=== PATIENT | male | born 1965 | race Caucasian/White ===

== ENCOUNTER 2018-05-07 11:49 | Emergency (ER) | payer SELFPAY ==
--- OUTSIDE RECORDS SUMMARY | 2018-05-07 11:51 | XMS REPORT ---
:1965 [facility] Address [address] [place] [address] Dr. Carballo [address] [place] [address] Care Team Providers Name Role Phone Unavailable Unavailable Unavailable Payers Payer Name Policy Type Policy Number Effective Date Expiration Date Problems This patient has no known problems. Allergies, Adverse Reactions, Alerts Allergy Allergy Status Severity Reaction(s) Onset Inactive Treating Comments Name Type Date Date Clinician No Known DA Active U 2018-01 Allergies -27 00:00:0 0 Medications This patient has no known medications.
[2018-05-07 13:52] LABS: Absolute Lymphocytes (CBC) 1.5 K/uL (0.7-4.9); Absolute Monocytes 0.7 K/uL (0.1-1.3); Absolute Neutrophil 4.5 K/uL (1.8-8.0); Basophils % 2.4 % (0-1.3); Eosinophils % 1.9 % (0-4.4); Hematocrit 46.6 % (39.6-49.0); Lymphocytes % 21.1 % (15.3-44.8); MPV 8.4 fL (7.6-11.3); Monocytes % 10.4 % (3.3-12.3); RBC Red Blood Cell Count 4.88 M/uL (4.33-5.43)
[2018-05-07 14:03] LABS: Albumin 3.6 g/dL (3.4-5.0); Bilirubin Direct 0.3 mg/dL (0-0.2); Bilirubin Total 0.7 mg/dL (0.2-1.0); Potassium 4.3 mmol/L (3.5-5.1)
--- NOTE | 2018-05-07 14:11 | EDPHYS ---
Physician Documentation [facility] Name: Chong Ocampo Age: 53 yrs Sex: Male : 1965 Arrival Date: 05/07/2018 Time: 11:51 Bed 20 Private MD: ED Physician Ford Mondragon HPI: 05/07 19:49 This 53 yrs old Male presents to ER via Ambulatory with complaints of Rectal gs Bleeding. 19:49 The patient presents to the emergency department with bleeding from the rectum/anus, gs that is moderate. Onset: The symptoms/episode began/occurred 1 week(s) ago. Modifying factors: The symptoms are alleviated by cool compress, The symptoms are aggravated by bowel movement. Modifying factors: The symptoms are aggravated by lifting. Associate signs and symptoms: Pertinent negatives: abdominal pain, constipation, diarrhea, dysuria. The patient has experienced similar episodes in the past, several times. The patient has not recently seen a physician. Historical: - Allergies: 12:00 Codeine; sg - PMHx: 12:06 COPD; CVA; Hepatitis; High Cholesterol; Hypertension; Myocardial infarction; sg Pancreatitis; Pneumonia; - PSHx: 12:06 Carotid surgery; sg - Immunization history:: Adult Immunizations up to date. - Social history:: Smoking status: Patient/guardian denies using tobacco. - Ebola Screening: : Patient negative for fever greater than or equal to 101.5 degrees Fahrenheit, and additional compatible Ebola Virus Disease symptoms Patient denies exposure to infectious person Patient denies travel to an Ebola-affected area in the 21 days before illness onset No symptoms or risks identified at this time. ROS: 19:49 All other systems are negative. gs Exam: 19:49 Head/Face: Normocephalic, atraumatic. Eyes: Pupils equal round and reactive to light, gs extra-ocular motions intact. Lids and lashes normal. Conjunctiva and sclera are non-icteric and not injected. Cornea within normal limits. Periorbital areas with no swelling, redness, or edema. ENT: Nares patent. No nasal discharge, no septal abnormalities noted. Tympanic membranes are normal and external auditory canals are clear. Oropharynx with no redness, swelling, or masses, exudates, or evidence of obstruction, uvula midline. Mucous membranes moist. Neck: Trachea midline, no thyromegaly or masses palpated, and no cervical lymphadenopathy. Supple, full range of motion without nuchal rigidity, or vertebral point tenderness. No Meningismus. Chest/axilla: Normal chest wall appearance and motion. Nontender with no deformity. No lesions are appreciated. Cardiovascular: Regular rate and rhythm with a normal S1 and S2. No gallops, murmurs, or rubs. Normal PMI, no JVD. No pulse deficits. Respiratory: Lungs have equal breath sounds bilaterally, clear to auscultation and percussion. No rales, rhonchi or wheezes noted. No increased work of breathing, no retractions or nasal flaring. Back: No spinal tenderness. No costovertebral tenderness. Full range of motion. Male : Normal genitalia with no discharge or lesions. Skin: Warm, dry with normal turgor. Normal color with no rashes, no lesions, and no evidence of cellulitis. MS/ Extremity: Pulses equal, no cyanosis. Neurovascular intact. Full, normal range of motion. Neuro: Awake and alert, GCS 15, oriented to person, place, time, and situation. Cranial nerves II-XII grossly intact. Motor strength 5/5 in all extremities. Sensory grossly intact. Cerebellar exam normal. Normal gait. 19:49 Constitutional: The patient appears alert, awake. 19:49 Abdomen/GI: Inspection: abdomen appears normal, Bowel sounds: normal, Palpation: abdomen is soft and non-tender, in all quadrants, Rectal exam: Stool: normal, guaiac negative. Vital Signs: 12:04 BP 128 / 78; Pulse 84; Resp 17; Temp 97.7; Pulse Ox 98% on R/A; Weight 83.91 kg; Height sg 5 ft. 10 in. (177.80 cm); Pain 8/10; 13:30 BP 136 / 78; Pulse 79; Resp 16; Pulse Ox 98% ; jl7 14:46 BP 134 / 75; Pulse 80; Resp 16 S; Pulse Ox 99% on R/A; jl7 12:04 Body Mass Index 26.54 (83.91 kg, 177.80 cm) MDM: 13:08 Patient medically screened. gs 19:49 Differential diagnosis: hemorrhoids, fissure. Data reviewed: vital signs, nurses notes. 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 Response to treatment: the patient's symptoms have resolved after treatment, and as a result, I will discharge patient. 05/07 13:09 Order name: Basic Metabolic Panel; Complete Time: 14:09 gs 05/07 13:09 Order name: CBC with Diff; Complete Time: 14:09 gs 05/07 13:09 Order name: Hepatic Function; Complete Time: 14:09 gs 05/07 13:09 Order name: Lipase; Complete Time: 14:09 gs 05/07 13:09 Order name: IV Saline Lock; Complete Time: 13:45 gs 05/07 13:09 Order name: Labs collected and sent; Complete Time: 13:45 gs Administered Medications: No medications were administered Disposition: 05/07/18 14:10 Discharged to Home. Impression: Gastrointestinal hemorrhage, unspecified. - Condition is Stable. - Discharge Instructions: Rectal Bleeding. - Medication Reconciliation Form, Thank You Letter, Antibiotic Education, Prescription Opioid Use form. - Follow up: Mitesh Dumas MD; When: 2 - 3 days; Reason: Re-evaluation by your physician. Signatures: Dispatcher [employer] EDMS Dejan Ceron RN RN sg Kim Diallo RN RN jl7 Ford Mondragon MD MD Corrections: (The following items were deleted from the chart) 14:47 14:10 05/07/2018 14:10 Discharged to Home. Impression: Gastrointestinal hemorrhage, jl7 unspecified. Condition is Stable. Forms are Medication Reconciliation Form, Thank You Letter, Antibiotic Education, Prescription Opioid Use. Follow up: Mitesh Dumas; When: 2 - 3 days; Reason: Re-evaluation by your physician. gs
--- NOTE | 2018-05-07 14:11 | ER ---
Nurse's Notes [facility] Name: Chong Ocampo Age: 53 yrs Sex: Male : 1965 Arrival Date: 05/07/2018 Time: 11:51 Bed 20 Private MD: Diagnosis: Gastrointestinal hemorrhage, unspecified Presentation: 05/07 12:03 Presenting complaint: Patient states: pt reports rectal bleeding since 04/16/18, sg reports having had this happen before but was not able to do a follow up with GI, rerports having happened several years ago, bright red blood with clots per pt family. Transition of care: patient was not received from another setting of care. Onset of symptoms was May 07, 2018. Risk Assessment: Do you want to hurt yourself or someone else? Patient reports no desire to harm self or others. Initial Sepsis Screen: Does the patient meet any 2 criteria? No. Patient's initial sepsis screen is negative. Does the patient have a suspected source of infection? No. Patient's initial sepsis screen is negative. Care prior to arrival: None. 12:03 Method Of Arrival: Ambulatory sg 12:03 Acuity: FILI 3 sg Historical: - Allergies: 12:00 Codeine; sg - PMHx: 12:06 COPD; CVA; Hepatitis; High Cholesterol; Hypertension; Myocardial infarction; sg Pancreatitis; Pneumonia; - PSHx: 12:06 Carotid surgery; sg - Immunization history:: Adult Immunizations up to date. - Social history:: Smoking status: Patient/guardian denies using tobacco. - Ebola Screening: : Patient negative for fever greater than or equal to 101.5 degrees Fahrenheit, and additional compatible Ebola Virus Disease symptoms Patient denies exposure to infectious person Patient denies travel to an Ebola-affected area in the 21 days before illness onset No symptoms or risks identified at this time. Screenin:30 Abuse screen: Denies threats or abuse. Denies injuries from another. Nutritional jl7 screening: No deficits noted. Tuberculosis screening: No symptoms or risk factors identified. Fall Risk IV access (20 points). Total Tony Fall Scale indicates No Risk (0-24 pts). Assessment: 13:20 General: Appears in no apparent distress. uncomfortable, Behavior is calm, cooperative, jl7 appropriate for age. Pain: Complains of pain in umbilical area and left lower quadrant Pain currently is 8 out of 10 on a pain scale. Neuro: Level of Consciousness is awake, alert, obeys commands, Oriented to person, place, time, situation. Cardiovascular: Patient's skin is warm and dry. Respiratory: Airway is patent Respiratory effort is even, unlabored, Respiratory pattern is regular, symmetrical. GI: Abdomen is round non-distended, Bowel sounds present X 4 quads. Reports rectal bleeding. : No signs and/or symptoms were reported regarding the genitourinary system. EENT: No signs and/or symptoms were reported regarding the EENT system. Derm: Skin is pink, warm \T\ dry. 14:20 Reassessment: Patient appears in no apparent distress at this time. No changes from jl7 previously documented assessment. Patient and/or family updated on plan of care and expected duration. Pain level reassessed. Patient is alert, oriented x 3, equal unlabored respirations, skin warm/dry/pink. Vital Signs: 12:04 BP 128 / 78; Pulse 84; Resp 17; Temp 97.7; Pulse Ox 98% on R/A; Weight 83.91 kg; Height sg 5 ft. 10 in. (177.80 cm); Pain 8/10; 13:30 BP 136 / 78; Pulse 79; Resp 16; Pulse Ox 98% ; jl7 14:46 BP 134 / 75; Pulse 80; Resp 16 S; Pulse Ox 99% on R/A; jl7 12:04 Body Mass Index 26.54 (83.91 kg, 177.80 cm) ED Course: 11:51 Patient arrived in ED. mr 11:54 Arm band placed on. sg 12:04 Triage completed. sg 12:41 Ford Mondragon MD is Attending Physician. gs 13:12 Kim Diallo RN is Primary Nurse. jl7 13:30 Patient has correct armband on for positive identification. Placed in gown. Bed in low jl7 position. Call light in reach. Side rails up X 1. satellite project site monitor on. Pulse ox on. NIBP on. Warm blanket given. 13:30 Initial lab(s) drawn, by me, sent to lab. Inserted saline lock: 20 gauge in right jl7 antecubital area, using aseptic technique. Blood collected. 14:09 Mitesh Dumas MD is Referral Physician. 14:46 No provider procedures requiring assistance completed. IV discontinued, intact, jl7 bleeding controlled, No redness/swelling at site. Pressure dressing applied. Administered Medications: No medications were administered Outcome: 14:10 Discharge ordered by . 14:46 Discharged to home ambulatory. jl7 14:46 Condition: stable 14:46 Discharge instructions given to patient, family, Instructed on discharge instructions, follow up and referral plans. Demonstrated understanding of instructions, follow-up care. 14:47 Patient left the ED. jl7 Signatures: Dejan Ceron, VARUN BOND Cassi Anaya Jahala, RN RN jl7 Ford Mondragon MD MD
[2018-05-07 14:52] VITALS: TEMP 97.7
[2018-05-07 14:55] VITALS: BP 134/75; O2SAT 99
== END 2018-05-07 14:47 | disposition home or self-care (01) ==
LOC: ER 11:49
DX: K92.2 Gastrointestinal hemorrhage, unspecified (principal)
CPT/HCPCS: 36415; 80048; 80076; 83690; 85025; 99284

== ENCOUNTER 2019-07-08 10:00 | Emergency (ER) | payer SELFPAY ==
--- OUTSIDE RECORDS SUMMARY | 2019-07-08 10:05 | XMS REPORT ---
:1965 Author Organization [facility] Address [address] [place] [address] Dr. Carballo [address] [place] [address] Care Team Providers Name Role Phone Unavailable Unavailable Unavailable Payers Payer Name Policy Type Policy Number Effective Date Expiration Date Problems This patient has no known problems. Allergies, Adverse Reactions, Alerts Allergy Allergy Status Severity Reaction(s) Onset Inactive Treating Comments Name Type Date Date Clinician No Known DA Active U 2018-01 Allergies -27 00:00:0 0 Medications This patient has no known medications. Results Test Description Test Time Test Comments Text Results Atomic Results Result Comments BRIAN WEIR 2018-02-19 RUN 12:44:00 DATE: 02/19/18 [facility] PAGE 1 RUN TIME: 1244 Specimen Inquiry RUN USER: INTERFACE TOBY ENT: TIMMY LINARES LOC: TONY U #: [id number] AGE/SX: 53/M [facility]: Karan Roque MD : 65 BED: A DIS: STATUS: ADM IN TLOC: SPEC #: [id number] RECD: 02/18/18 STATUS: GIANNI REQ #: [id number] MALIHA: 02/18/[address]: Karan Roque MD ENTERED: 02/18/18 SP TYPE: ARTERY, PL OTHR DR: Mali Amezquita MD ORDERED: DECAL, SURG PATH LVL 3, SURG PATH LVL 4 CODES: [id number] - PLAQUE, NOS [id number] - ARTERY, NOS [id number] - CAROTID ARTERY DEGENERATION, N [id number] - CAROTID ARTERY NEOPLASM, MALIG [id number] - CERVIX EXCISIONAL BIOP [id number] - LYMPH NODE, NOS COPIES TO: Mali Amezquita MD [address] [place] [address] [address] [place], [place] [id number] [email or web address] [address] [facility] [place] [address] PROCEDURES: DECAL (02/19/18-1003) SURG PATH LVL 3 (02/18/18) SURG PATH LVL 4 (02/18/181713) TISSUES: A. ARTERY, NOS - LT CAROTID PLAQUE B. LYMPH NODE, NOS - LT CERVICAL LYMPH NODE CLINICAL HISTORY CAD CPT CODES CPT CODE(S): 42129 , 14296 , 60001 , , , , FINAL DIAGNOSIS A. Plaque, left carotid artery, endarterectomy: ATHEROMATOUS PLAQUE FORMATION WITH CALCIFIC DEGENERATION NO ATYPIA NO MALIGNANCY CONTINUED ON NEXT PAGE RUN DATE: 02/19/18 [facility] - Lab PAGE 2 RUN TIME: 1244 Specimen Inquiry RUN USER: INTERFACE SPEC #: [id number] PATIENT: TIMMY LINARES JA # [id number] (Continued) ------- FINAL DIAGNOSIS (Continued) B. Lymph node, left cervical, excisional biopsy: MILD, NONSPECIFIC REACTIVE CHANGES GROSS DESCRIPTION A. Left carotid plaque. The specimen consists of a Y-shaped segment of plaque measuring 3.2 x 1.5 x 1 cm. Sectioning reveals a calcified wall. Section submitted for decalcification as A1. B. Left cervical lymph node. The specimen consists of a single node measuring 1.1 x 1 x 0.5 cm. Serially sectioned and submitted as B1. /tc/pdb MICROSCOPIC DESCRIPTION A. Left carotid plaque. Benign vascular stromal tissue, hyalinized fibrosis and focal dystrophic calcification. No atypia. No malignancy. B. Left cervical lymph node. Benign lymph node with mild paracortical and sinusoidal reactive changes. No atypia or malignancy identified. /tobi Signed SIGNATURE ON FILE AditiBodemarcus [id number] END OF REPORT
--- NOTE | 2019-07-08 10:34 | RAD REPORT ---
EXAM DESCRIPTION: RAD - Chest Single View - 07/08/2019 10:29 am CLINICAL HISTORY: fb Chest pain. COMPARISON: Chest Single View dated 02/08/2017; Chest Single View dated 01/30/2017; Chest Single Vie w dated 01/09/2017; Chest Single View dated 12/03/2016 FINDINGS: Portable technique limits examination quality. The lungs are grossly clear. The heart is normal in size. No displaced fractures. IMPRESSION: No acute intrathoracic process suspected.
[2019-07-08] MEDS ORDERED: GLUCAGON 1 MG/VIAL ONE ×2 (10:40→11:43)
[2019-07-08 13:27] LABS: Absolute Lymphocytes (CBC) 1.1 K/uL (0.7-4.9); Basophils % 1.2 % (0-1.3); Hematocrit 50.6 % (39.6-49.0); Lymphocytes % 9.5 % (15.3-44.8); MPV 7.7 fL (7.6-11.3); RBC Red Blood Cell Count 5.37 M/uL (4.33-5.43)
[2019-07-08 13:37] LABS: BUN Blood Urea Nitrogen 12 mg/dL (7-18); Bicarbonate 25 mmol/L (21-32); Glucose Level 85 mg/dL (74-106); Potassium 3.4 mmol/L (3.5-5.1); Sodium Level 142 mmol/L (136-145)
--- NOTE | 2019-07-08 14:11 | EDPHYS ---
Physician Documentation [facility] Name: Chong Ocampo Age: 54 yrs Sex: Male : 1965 Arrival Date: 07/08/2019 Time: 10:02 Bed 6 Private MD: ED Physician Nahun East HPI: 07/07 15:33 This 54 yrs old Male presents to ER via Ambulatory with complaints of kb Choked/Choking. 15:33 The patient or guardian reports the patient has a suspected foreign body, of the kb throat. The reported likely foreign body is piece of meat. Onset: The symptoms/episode began/occurred last night. Current symptoms: foreign body sensation. Treatment Prior to Arrival: tried to flush, with water, tried to vomit. The patient has not experienced similar symptoms in the past. The patient has not recently seen a physician. Pt reports he was eating pork chops at approx 2330 last night and a piece got stuck in his throat. Reports FB sensation and vomiting. States nothing goes all the way down once swallowed. Historical: - Allergies: 10:06 Codeine; ca1 - PMHx: 10:06 COPD; CVA; Hepatitis; High Cholesterol; Hypertension; Myocardial infarction; ca1 Pancreatitis; Pneumonia; - Immunization history:: Adult Immunizations not up to date. - Social history:: Smoking status: Patient reports the use of cigarette tobacco products, smokes one pack cigarettes per day. ROS: 15:32 Constitutional: Negative for fever, chills, and weight loss, Neck: Negative for injury, kb pain, and swelling, Cardiovascular: Negative for chest pain, palpitations, and edema, Respiratory: Negative for shortness of breath, cough, wheezing, and pleuritic chest pain, Back: Negative for injury and pain, MS/Extremity: Negative for injury and deformity, Skin: Negative for injury, rash, and discoloration, Neuro: Negative for headache, weakness, numbness, tingling, and seizure. 15:32 Abdomen/GI: Positive for nausea and vomiting, Negative for abdominal pain. 15:33 ENT: Positive for foreign body sensation. kb Exam: 15:32 Constitutional: This is a well developed, well nourished patient who is awake, alert, kb and in no acute distress. Head/Face: Normocephalic, atraumatic. ENT: Nares patent. No nasal discharge, no septal abnormalities noted. Tympanic membranes are normal and external auditory canals are clear. Oropharynx with no redness, swelling, or masses, exudates, or evidence of obstruction, uvula midline. Mucous membranes moist. Neck: Trachea midline, no thyromegaly or masses palpated, and no cervical lymphadenopathy. Supple, full range of motion without nuchal rigidity, or vertebral point tenderness. No Meningismus. Chest/axilla: Normal chest wall appearance and motion. Nontender with no deformity. No lesions are appreciated. Cardiovascular: Regular rate and rhythm with a normal S1 and S2. No gallops, murmurs, or rubs. Normal PMI, no JVD. No pulse deficits. Respiratory: Lungs have equal breath sounds bilaterally, clear to auscultation and percussion. No rales, rhonchi or wheezes noted. No increased work of breathing, no retractions or nasal flaring. Abdomen/GI: Soft, non-tender, with normal bowel sounds. No distension or tympany. No guarding or rebound. No evidence of tenderness throughout. Skin: Warm, dry with normal turgor. Normal color with no rashes, no lesions, and no evidence of cellulitis. MS/ Extremity: Pulses equal, no cyanosis. Neurovascular intact. Full, normal range of motion. Neuro: Awake and alert, GCS 15, oriented to person, place, time, and situation. Cranial nerves II-XII grossly intact. Motor strength 5/5 in all extremities. Sensory grossly intact. Cerebellar exam normal. Normal gait. Vital Signs: 10:03 BP 182 / 96; Pulse 107; Resp 20; Pulse Ox 100% on R/A; Weight 72.57 kg (R); Height 5 ca1 ft. 10 in. (177.80 cm) (R); Pain 10/10; 10:44 BP 157 / 123; Pulse 122; Resp 19; Pulse Ox 100% ; bp 11:16 BP 182 / 99; Pulse 105; Resp 17; Pulse Ox 100% ; bp 13:31 BP 171 / 109; Pulse 100; Resp 19; Pulse Ox 100% ; bp 10:03 Body Mass Index 22.96 (72.57 kg, 177.80 cm) ca1 MDM: 10:06 Patient medically screened. elisha 13:30 Data reviewed: vital signs, nurses notes. Data interpreted: Pulse oximetry: on room air kb is 100 %. Interpretation: normal. Counseling: I had a detailed discussion with the patient and/or guardian regarding: the historical points, exam findings, and any diagnostic results supporting the discharge/admit diagnosis, radiology results, the need to transfer to another facility. Physician consultation: Zechariah Mac MD was contacted at 13:10, regarding consult, patient's condition. ED course: Pt educated on need for transfer due to lack of GI specialty to remove food bolus. Pt wants to discuss this with his prior to deciding on transfer. . 14:09 ED course: Pt discussed transfer with . States they would like to leave AMA and kb drive to another facility themselves. Pt is A\T\Ox3, in no distress. 07/07 13:05 Order name: CBC with Diff; Complete Time: 13:33 kb 07/07 13:05 Order name: Basic Metabolic Panel; Complete Time: 13:47 kb 07/07 10:07 Order name: IV Start; Complete Time: 10:42 kb 07/07 10:09 Order name: Chest Single View XRAY; Complete Time: 10:58 kb 07/07 10:59 Order name: Misc. Order: give coke through a straw; Complete Time: 11:11 kb 07/07 12:39 Order name: Misc. Order: give coke through a straw; Complete Time: 13:26 kb Administered Medications: 10:40 Drug: Glucagon 1 mg Route: IVP; Site: right antecubital; bp 13:09 Follow up: Response: No change in condition bp 11:41 Drug: Glucagon 1 mg Route: IVP; Site: right antecubital; bp 13:09 Follow up: Response: No change in condition bp Disposition: 15:26 Co-signature as Attending Physician, Nahun East MD. rn Disposition: 07/08/19 14:10 Patient has left against medical advice. Impression: Food in esophagus. - Patients states they are going to Home. - Condition is Fair. Follow up: Emergency Department; When: As needed; Reason: Worsening of condition. Follow up: Private Physician; When: 2 - 3 days; Reason: Recheck today's complaints, Continuance of care, Re-evaluation by your physician. - Problem is new. - Symptoms are unchanged. Signatures: Dispatcher [employer] Jess Smith, DOCUMENTATION IMPROVEMENT SPECIALIST-C DOCUMENTATION IMPROVEMENT SPECIALIST-Ckb Nahun East MD MD rn Smirch, Shelby, RN RN ss Catarino Peña, Sonya Kamara RN RN RN ca1 Corrections: (The following items were deleted from the chart) 14:18 14:10 07/08/2019 14:10 Patients has left against medical advice. Impression: Food in ss esophagus. Patient states they are going to Home. Condition is Fair. Follow up: Emergency Department; When: As needed; Reason: Worsening of condition. Follow up: Private Physician; When: 2 - 3 days; Reason: Recheck today's complaints, Continuance of care, Re-evaluation by your physician. Problem is new. Symptoms are unchanged. kb 15:33 15:32 Constitutional: Negative for fever, chills, and weight loss, ENT: Negative for kb injury, pain, and discharge, Neck: Negative for injury, pain, and swelling, Cardiovascular: Negative for chest pain, palpitations, and edema, Respiratory: Negative for shortness of breath, cough, wheezing, and pleuritic chest pain, Back: Negative for injury and pain, MS/Extremity: Negative for injury and deformity, Skin: Negative for injury, rash, and discoloration, Neuro: Negative for headache, weakness, numbness, tingling, and seizure, kb
--- NOTE | 2019-07-08 14:11 | ER ---
Nurse's Notes [facility] Name: Chong Ocampo Age: 54 yrs Sex: Male : 1965 Arrival Date: 07/08/2019 Time: 10:02 Bed 6 Private MD: Diagnosis: Food in esophagus Presentation: 07/07 10:03 Chief complaint: Patient states: a piece of meat is stuck in throat since last night. ca1 Vomiting since last night. Reports difficulty breathing. Coronavirus screen: The patient has NOT traveled to a country currently being monitored by the [facility] within the last 14 days. The patient has NOT had contact with any known and/or suspected case of coronavirus. Ebola Screen: Patient negative for fever greater than or equal to 101.5 degrees Fahrenheit, and additional compatible Ebola Virus Disease symptoms Patient denies exposure to infectious person. Patient denies travel to an Ebola-affected area in the 21 days before illness onset. No symptoms or risks identified at this time. Initial Sepsis Screen: Does the patient meet any 2 criteria? No. Patient's initial sepsis screen is negative. Does the patient have a suspected source of infection? No. Patient's initial sepsis screen is negative. Risk Assessment: Do you want to hurt yourself or someone else? Patient reports no desire to harm self or others. Care prior to arrival: None. 10:03 Method Of Arrival: Ambulatory ca1 10:03 Acuity: FILI 2 ca1 10:03 Onset of symptoms was July 07, 2019. ca1 Triage Assessment: 10:03 General: Appears in no apparent distress. uncomfortable, Behavior is appropriate for bp age, agitated, anxious. Pain: Denies pain. EENT: Reports FB SENSATION IN THROAT. Neuro: No deficits noted. Cardiovascular: No deficits noted. Respiratory: No deficits noted. GI: No signs and/or symptoms were reported involving the gastrointestinal system. : No signs and/or symptoms were reported regarding the genitourinary system. Derm: No deficits noted. Musculoskeletal: No deficits noted. Historical: - Allergies: 10:06 Codeine; ca1 - PMHx: 10:06 COPD; CVA; Hepatitis; High Cholesterol; Hypertension; Myocardial infarction; ca1 Pancreatitis; Pneumonia; - Immunization history:: Adult Immunizations not up to date. - Social history:: Smoking status: Patient reports the use of cigarette tobacco products, smokes one pack cigarettes per day. Screenin:10 Abuse screen: Denies threats or abuse. Denies injuries from another. Nutritional bp screening: No deficits noted. Tuberculosis screening: No symptoms or risk factors identified. Fall Risk None identified. Assessment: 10:03 General: SEE TRIAGE NOTE.. bp 11:16 Reassessment: PT ATTEMPTING PO CHALLENGE. bp 12:30 Reassessment: No changes from previously documented assessment. Patient states symptoms bp have not improved. Respiratory: Airway is patent. 13:29 Reassessment: SECOND PO CHALLENGE UNSUCCESSFUL. LABS DRAWN/SENT. bp Vital Signs: 10:03 BP 182 / 96; Pulse 107; Resp 20; Pulse Ox 100% on R/A; Weight 72.57 kg (R); Height 5 ca1 ft. 10 in. (177.80 cm) (R); Pain 10/10; 10:44 BP 157 / 123; Pulse 122; Resp 19; Pulse Ox 100% ; bp 11:16 BP 182 / 99; Pulse 105; Resp 17; Pulse Ox 100% ; bp 13:31 BP 171 / 109; Pulse 100; Resp 19; Pulse Ox 100% ; bp 10:03 Body Mass Index 22.96 (72.57 kg, 177.80 cm) ca1 ED Course: 10:02 Patient arrived in ED. rg4 10:05 Triage completed. ca1 10:06 [facility]C [facility] kb 10:06 Nahun East MD is Attending Physician. kb 10:06 Arm band placed on right wrist. ca1 10:29 Chest Single View XRAY In Process Unspecified. EDMS 10:42 Patient has correct armband on for positive identification. Bed in low position. Call mh5 light in reach. Adult w/ patient. Pulse ox on. NIBP on. 10:42 Inserted saline lock: 20 gauge in right antecubital area, using aseptic technique. mh5 Blood collected. 10:43 Catarino Peña, VARUN is Primary Nurse. bp 14:16 No provider procedures requiring assistance completed. IV discontinued, intact, ss bleeding controlled, No redness/swelling at site. Pressure dressing applied. Administered Medications: 10:40 Drug: Glucagon 1 mg Route: IVP; Site: right antecubital; bp 13:09 Follow up: Response: No change in condition bp 11:41 Drug: Glucagon 1 mg Route: IVP; Site: right antecubital; bp 13:09 Follow up: Response: No change in condition bp Outcome: 14:16 AMA AMA form signed 14:16 Condition: stable 14:16 Discharge instructions given to patient, family, Instructed on discharge instructions, follow up and referral plans. Demonstrated understanding of instructions, follow-up care. 14:18 Patient left the ED. ss Signatures: Dispatcher [employer] EDOR Jess Gordon, ANDREAS-C ANDREAS-Daylin Johns RN RN Viktoria Sims 4 [facility] Jackman [facility] Catarino Peña RN RN bp Sonya Pettit RN RN ca1 Corrections: (The following items were deleted from the chart) 13:31 13:27 Reassessment: bp bp
[2019-07-08 14:25] VITALS: O2SAT 100
[2019-07-08 14:29] VITALS: BP 171/109
[2019-07-08 14:39] VITALS: TEMP 98
== END 2019-07-08 14:18 | disposition left against medical advice (07) ==
LOC: ER 10:00
DX: T18.128A Food in esophagus causing other injury, initial encounter (principal); X58.XXXA Exposure to other specified factors, initial encounter; Y93.89 Activity, other specified; Y92.9 Unspecified place or not applicable; Z88.6 Allergy status to analgesic agent; F17.210 Nicotine dependence, cigarettes, uncomplicated; Z53.29 Procedure and treatment not carried out because of patient's decision for other reasons
CPT/HCPCS: 36415; 71045; 80048; 85025; 96374; 99284; J1610

== ENCOUNTER 2021-02-07 18:15 | Emergency (ER) | payer OTHER ==
[2021-02-07] MEDS ORDERED: ONDANSETRON 4 MG/2 ML VIAL ONE (19:12)
[2021-02-07] MEDS ORDERED: FENTANYL CITR 100 MCG/2 ML ONE ×2 (19:12→20:13)
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
[2021-02-07 21:24] VITALS: TEMP 98.4
[2021-02-07 21:26] VITALS: O2SAT 92
[2021-02-07 21:27] VITALS: BP 127/80
== END 2021-02-07 21:20 | disposition home or self-care (01) ==
LOC: ER 18:15
DX: S02.2XXA Fracture of nasal bones, initial encounter for closed fracture (principal); M54.2 Cervicalgia; M54.50 Low back pain, unspecified; R10.84 Generalized abdominal pain; V47.5XXA Car driver injured in collision with fixed or stationary object in traffic accident, initial encounter; I10 Essential (primary) hypertension; F17.210 Nicotine dependence, cigarettes, uncomplicated; Z86.73 Personal history of transient ischemic attack (TIA), and cerebral infarction without residual deficits; Z88.5 Allergy status to narcotic agent
CPT/HCPCS: 82565; 70450; 72125; 71260; 70486; 76377; 74177; 96375; 96374; 99284; Q9967; J3010 ×2; J2405

== ENCOUNTER 2021-02-12 07:46 | Emergency (ER) | payer OTHER ==
[2021-02-12 08:24] LABS: Basophils % 0.3 % (0-1.3); Hematocrit 50.8 % (39.6-49.0); Lymphocytes % 17.2 % (15.3-44.8); MPV 8.1 fL (7.6-11.3); RBC Red Blood Cell Count 5.22 M/uL (4.33-5.43)
[2021-02-12] MEDS ORDERED: NA CHLORIDE 0.9% 1,000 ML ONE (08:29)
[2021-02-12] MEDS ORDERED: GLUCAGON 1 MG/VIAL ONE (08:29)
--- NOTE | 2021-02-12 08:37 | RAD REPORT ---
EXAM DESCRIPTION: CT - Thorax Wo Con - 02/12/2021 8:22 am CLINICAL HISTORY: esophageal foreign body?? COMPARISON: No comparisons FINDINGS: Chest Wall: No suspicious thyroid nodules or pathologic lymphadenopathy. Lungs: No acute abnormality. Emphysema. Pleura: No significant effusions or pneumothorax. Mediastinum/catrachito: No pathologic lymphadenopathy. 3.9 cm filling defect in the distal esophagus. Fluid is present proximally. Pulmonary arteries/Aorta: Limited evaluation without contrast. No aortic aneurysm. Heart: No significant pericardial effusion. Normal heart size. Coronary artery calcifications . Upper abdomen: Cholelithiasis. Bones: No acute abnormality. All CT scans are performed using dose optimization technique as appropriate and may include automated exposure control or mA/KV adjustment according to patient size. IMPRESSION: Filling defect in the distal esophagus could reflect an impacted food bolus. No other ac [place] findings identified. The patient may be a candidate for annual low dose lung cancer screening CT.
[2021-02-12 09:21] LABS: Albumin 3.8 g/dL (3.4-5.0); Bilirubin Direct 0.3 mg/dL (0-0.2); Bilirubin Total 1.2 mg/dL (0.2-1.0); Potassium 3.6 mmol/L (3.5-5.1); Protein, Total 8.8 g/dL (6.4-8.2)
--- NOTE | 2021-02-12 09:23 | ER ---
Nurse's Notes [facility] Name: Chong Ocampo Age: 56 yrs Sex: Male : 1965 Arrival Date: 02/12/2021 Time: 07:47 Bed 8 Private MD: Diagnosis: Esophageal obstruction-food bolus Presentation: 02/12 07:50 Chief complaint: Patient states: "I was eating steak last night around 10:30pm and I aa5 felt it get stuck in my throat and I've been trying to throw up all night but I haven't been able to so it's still stuck". Pt c/o nausea and SOB. 07:50 Coronavirus screen: At this time, the client does not indicate any symptoms associated aa5 with coronavirus-19. Ebola Screen: No symptoms or risks identified at this time. Initial Sepsis Screen: Does the patient meet any 2 criteria? RR > 20 per min. HR > 90 bpm. Does the patient have a suspected source of infection? No. Patient's initial sepsis screen is negative. Risk Assessment: Do you want to hurt yourself or someone else? Patient reports no desire to harm self or others. Onset of symptoms was January 2021. 07:50 Acuity: FILI 2 aa5 07:50 Method Of Arrival: Ambulatory aa5 Triage Assessment: 08:09 General: Appears uncomfortable, Behavior is cooperative, restless. Pain: Complains of jw6 pain in neck Pain does not radiate. Pain currently is 9 out of 10 on a pain scale. Quality of pain is described as pressure, Pain began 8-10 hours ago. EENT: No deficits noted. EENT: Reports difficulty swallowing since 2200 last night. Neuro: No deficits noted. Cardiovascular: No deficits noted. Respiratory: Reports cough that is non-productive. GI: No deficits noted. : No deficits noted. Derm: No deficits noted. Musculoskeletal: No deficits noted. Historical: - Allergies: 07:58 Codeine; aa5 - PMHx: 07:58 CVA; COPD; Hepatitis; High Cholesterol; Hypertension; Myocardial infarction; aa5 Pancreatitis; Pneumonia; - PSHx: 07:58 Carotid stents; heart stent; aa5 - Immunization history:: Client reports having NOT received the Covid vaccine. - Social history:: Smoking status: Patient reports the use of cigarette tobacco products, smokes one-half pack cigarettes per day. - Family history:: not pertinent. Screenin:12 Abuse screen: Denies threats or abuse. Denies injuries from another. Nutritional [facility] screening: Difficulty chewing/swallowing? Yes. Tuberculosis screening: No symptoms or risk factors identified. Fall Risk IV access (20 points). Assessment: 08:12 General: Appears uncomfortable. Pain: Complains of pain in neck Pain does not radiate. [facility] Pain currently is 8 out of 10 on a pain scale. Pain began 8-10 hours ago. Neuro: No deficits noted. Cardiovascular: No deficits noted. Respiratory: Reports cough that is non-productive. GI: No deficits noted. : No deficits noted. : No deficits noted. EENT: No deficits noted. Derm: No deficits noted. Musculoskeletal: No deficits noted. Injury Description: Foreign body is located neck is "piece of steak" was sustained 6-12 hours ago. Vital Signs: 07:50 BP 165 / 116; Pulse 118; Resp 24; Temp 98.0(TE); Pulse Ox 100% on R/A; Weight 81.65 kg aa5 (R); Height 5 ft. 10 in. (177.80 cm) (R); 08:11 BP 163 / 98; Pulse 118; Resp 20; Pulse Ox 96% on R/A; Weight 84.82 kg; Height 5 ft. 9 jw6 in. (175.26 cm); Pain 8/10; 09:33 BP 186 / 105; Pulse 88; Resp 20; Pulse Ox 99% on R/A; jw6 08:11 Body Mass Index 27.61 (84.82 kg, 175.26 cm) [facility] Vitals: 08:12 Cardiac Rhythm Assessment Regular. [facility] ED Course: 07:47 Patient arrived in ED. as 07:50 Arm band placed on Patient placed in an exam room, on a stretcher. aa5 07:58 Triage completed. aa5 07:59 Eduardo Buckley MD is Attending Physician. ma2 08:08 Viola Puri is Primary Nurse. jw6 08:09 Basic Metabolic Panel Sent. jw6 08:12 Patient has correct armband on for positive identification. Bed in low position. Call [facility] light in reach. Side rails up X 1. human resources office manager on. Pulse ox on. NIBP on. 08:12 Inserted saline lock: 20 gauge in right forearm, using aseptic technique. jw6 08:12 Initial lab(s) drawn, by me, sent to lab. jw6 08:23 CT Chest Wo Con In Process Unspecified. EDMS 08:28 Warm blanket given. mh5 09:11 initiated a transfer with Alexandra Harper from the [facility] transfer center. eb 09:[address] Lopes the emergency room physician investigations director with Dr. Buckley for patient eb transfer consultation. 09:22 administrative approval given by Alexandra Harper/ patient has been accepted to [facility] ER/ eb Dr. Richard Lopes has accepted the patient in transfer/ report to be called to [phone]. 09:38 Report given to VARUN Balderas at [facility] in [facility]. jw6 09:38 No provider procedures requiring assistance completed. Patient transferred, IV remains jw6 in place. Administered Medications: 08:08 Drug: GlucaGen (glucagon) 1 mg Route: IVP; Site: right antecubital; jw6 08:15 Follow up: Response: No adverse reaction jw6 08:09 Drug: NS 0.9% 1000 ml Route: IV; Rate: 1 bolus; Site: right antecubital; jw6 09:45 Follow up: Response: No adverse reaction; IV Status: Completed infusion; IV Intake: jw6 1000ml Intake: 09:45 IV: 1000ml; Total: 1000ml. jw6 Outcome: 09:23 ER care complete, transfer ordered by . ma2 09:39 Transferred by ground EMS to [facility]. jw6 09:39 Condition: stable 09:39 Instructed on the need for transfer. 10:21 Patient left the ED. iw Signatures: Dispatcher [employer] Jennifer Kuhn Irene RN Katheryn Hoang RN RN Diamond Waller Eduardo Shaver MD MD ma2 Chapis Alcaraz Jessica jw6 Corrections: (The following items were deleted from the chart) 09:27 09:11 initiated a transfer with the [facility] transfer center. eb eb 09:28 09:26 administrative approval given by Alexandra Harper/ patient has been accepted to [facility] ER/ Dr. Richard Lopes has accepted the patient in transfer/ report to be called to [phone]
--- NOTE | 2021-02-12 09:24 | EDPHYS ---
Physician Documentation [facility] Name: Chong Ocampo Age: 56 yrs Sex: Male : 1965 Arrival Date: 02/12/2021 Time: 07:47 Bed 8 Private MD: ED Physician Eduardo Buckley HPI: 02/12 08:28 This 56 yrs old Male presents to ER via Ambulatory with complaints of Foreign ma2 Body In Throat - steak. 08:28 This 56 yrs old Male presents to ER via Ambulatory with complaints of Foreign ma2 Body In esophengus - steak. 08:28 The patient presents to the emergency department with nausea, vomiting. Onset: The ma2 symptoms/episode began/occurred suddenly, 1 day(s) ago. Associated signs and symptoms: Pertinent negatives: constipation, dysuria, flatulence, GI bleeding. Severity of symptoms: At their worst the symptoms were moderate in the emergency department the symptoms are unchanged. The patient has experienced similar episodes in the past. Patient has vomiting and able to swallow saliva, started right after eating the steak, he feels the steak is stuck in his esophagus. This happened 12 hours ago. No cough or respiratory symptoms. Patient has had this before multiple times had esophageal procedures done in the past.. Historical: - Allergies: 07:58 Codeine; aa5 - PMHx: 07:58 CVA; COPD; Hepatitis; High Cholesterol; Hypertension; Myocardial infarction; aa5 Pancreatitis; Pneumonia; - PSHx: 07:58 Carotid stents; heart stent; aa5 - Immunization history:: Client reports having NOT received the Covid vaccine. - Social history:: Smoking status: Patient reports the use of cigarette tobacco products, smokes one-half pack cigarettes per day. - Family history:: not pertinent. ROS: 08:28 Constitutional: Negative for fever, chills, and weight loss. ma2 08:28 All other systems are negative. Exam: 08:28 Constitutional: This is a well developed, well nourished patient who is awake, alert, ma2 and in no acute distress. Head/Face: Normocephalic, atraumatic. Eyes: Pupils equal round and reactive to light, extra-ocular motions intact. Lids and lashes normal. Conjunctiva and sclera are non-icteric and not injected. Cornea within normal limits. Periorbital areas with no swelling, redness, or edema. ENT: Nares patent. No nasal discharge, no septal abnormalities noted. Tympanic membranes are normal and external auditory canals are clear. Oropharynx with no redness, swelling, or masses, exudates, or evidence of obstruction, uvula midline. Mucous membranes moist. Neck: Trachea midline, no thyromegaly or masses palpated, and no cervical lymphadenopathy. Supple, full range of motion without nuchal rigidity, or vertebral point tenderness. No Meningismus. Chest/axilla: Normal chest wall appearance and motion. Nontender with no deformity. No lesions are appreciated. Cardiovascular: Regular rate and rhythm with a normal S1 and S2. No gallops, murmurs, or rubs. Normal PMI, no JVD. No pulse deficits. Respiratory: Lungs have equal breath sounds bilaterally, clear to auscultation and percussion. No rales, rhonchi or wheezes noted. No increased work of breathing, no retractions or nasal flaring. Abdomen/GI: Nausea vomiting, unable to swallow saliva. Abdomen soft, non-tender, with normal bowel sounds. No distension or tympany. No guarding or rebound. No evidence of tenderness throughout. Skin: Warm, dry with normal turgor. Normal color with no rashes, no lesions, and no evidence of cellulitis. MS/ Extremity: Pulses equal, no cyanosis. Neurovascular intact. Full, normal range of motion. Neuro: Awake and alert, GCS 15, oriented to person, place, time, and situation. Cranial nerves II-XII grossly intact. Motor strength 5/5 in all extremities. Sensory grossly intact. Cerebellar exam normal. Normal gait. Vital Signs: 07:50 BP 165 / 116; Pulse 118; Resp 24; Temp 98.0(TE); Pulse Ox 100% on R/A; Weight 81.65 kg aa5 (R); Height 5 ft. 10 in. (177.80 cm) (R); 08:11 BP 163 / 98; Pulse 118; Resp 20; Pulse Ox 96% on R/A; Weight 84.82 kg; Height 5 ft. 9 jw6 in. (175.26 cm); Pain 8/10; 09:33 BP 186 / 105; Pulse 88; Resp 20; Pulse Ox 99% on R/A; jw6 08:11 Body Mass Index 27.61 (84.82 kg, 175.26 cm) jw6 MDM: 07:59 Patient medically screened. ma2 08:28 Differential diagnosis: gastritis, viral gastroenteritis, gastroenteritis. ma2 09:21 Data reviewed: vital signs, nurses notes. Counseling: I had a detailed discussion with ma2 the patient and/or guardian regarding: the historical points, exam findings, and any diagnostic results supporting the discharge/admit diagnosis, the presence of at least one elevated blood pressure reading (>120/80) during this emergency department visit, the need for outpatient follow up. Response to treatment: the patient's symptoms have markedly improved after treatment. ED course: Patient has food impaction in esophagus, given glucagon IV, no resolution. Vital signs within normal limits. Blood work unremarkable. Will transfer to higher level of care as we do not have GI service available in our hospital. Discussed and accepted by Dr. Hdez.. 02/12 07:59 Order name: Basic Metabolic Panel ga2 02/12 07:59 Order name: CBC with Diff; Complete Time: 08:58 ga2 02/12 07:59 Order name: Hepatic Function; Complete Time: 09:21 ma2 02/12 07:59 Order name: Lipase; Complete Time: 09:21 ga2 02/12 07:59 Order name: CT Chest Wo Con; Complete Time: 08:58 ga2 02/12 08:00 Order name: Basic Metabolic Panel; Complete Time: 09:21 EDMS 02/12 07:59 Order name: IV Saline Lock; Complete Time: 08:02 ga2 02/12 07:59 Order name: Labs collected and sent; Complete Time: 08:02 [facility] Administered Medications: 08:08 Drug: GlucaGen (glucagon) 1 mg Route: IVP; Site: right antecubital; jw6 08:15 Follow up: Response: No adverse reaction jw6 08:09 Drug: NS 0.9% 1000 ml Route: IV; Rate: 1 bolus; Site: right antecubital; jw6 09:45 Follow up: Response: No adverse reaction; IV Status: Completed infusion; IV Intake: jw6 1000ml Disposition Summary: 02/12/21 09:23 Transfer Ordered Transfer Location: [place] [id number] Reason: Higher level of care ma2 Condition: Stable ma2 Problem: new ma2 Symptoms: are unchanged ma2 Accepting Physician: dr. hdez(02/12/21 10:21) iw Diagnosis - Esophageal obstruction - food bolus ma2 Forms: - Medication Reconciliation Form ma2 - SBAR form ma2 Signatures: Dispatcher [employer] Kendra Pearl RN RN iw Katheryn Valentine RN RN aa5 Eduardo Buckley MD MD ma2 Viola Puri 6 Corrections: (The following items were deleted from the chart) 09:23 dr. hdez ma2 iw
[2021-02-12 10:28] VITALS: TEMP 98
[2021-02-12 10:30] VITALS: BP 186/105; O2SAT 99
== END 2021-02-12 10:21 | disposition short-term general hospital (02) ==
LOC: ER 07:46
DX: K22.2 Esophageal obstruction (principal); F17.210 Nicotine dependence, cigarettes, uncomplicated; Z88.6 Allergy status to analgesic agent
CPT/HCPCS: 96361; 85025; 80048; 36415; 80076; 83690; 71250; 96374; 99285; J1610; J7030

== ENCOUNTER 2024-02-29 14:22 | Observation (INO) | payer OTHER ==
--- OUTSIDE RECORDS SUMMARY | 2024-02-29 14:25 | XMS REPORT | Continuity of Care Document ---
Author Name Unknown Address [address] [facility] [address] [place] [address] [facility] Address [address] [facility] [address] [place] [address] Care Team Providers Care Ortho Nurse Name Role Phone Ca Carmona Primary Care Physicia n ABELINO ODONNELL Attending Clinician Unavailable Doctor Unassigned, Kinsey Attending Clinician U navailCECY Mcdonnell Attending Clinician Unavailable CECY FISHER Attending Clinician Unavailable AFSHAN_JACQUELINE Attending Clinician Unavailable GILMER_JASON Attending Clinician Unavailable ARVIND LOPES Attending Clinician Unavail Arvind Ayala MD Attending Clinician Mali Amezquita Attending Clinician Unavailable Erika Attending Clinician Unavailable Yissel Wilhelm MD Attending Clinician [phone] Lewis Clifton MD Attending Clinician YISSEL WILHELM Attending Clinician Unavailable DESAI_RAKARSONH Admitting Clinician Unavailable GILMER_JASON Admitting Clinician Unavailable ARVIND LOPES Admitting Clinician Unavail able Arvind Lopes MD Admitting Clinician [phone] Physician, No Primary or Family Admitting Clinic orlin Unavailable Erika Admitting Clinician Unavailable Lewis Radford MD Admitting Clinician [phone] LEWIS RADFORD Admitting Clinician Unavailable Payers Payer Name Policy Type Policy Number Effective Date Expirati on Date Source [facility] [place] [facility] [id number] 00:00:00 [facility] (MEDICAID REPLACEMENT - HMO) [id number] 2020 00:00:00 [facility] [id number] 2014 00:00:00 2014 00:00:00 Problems Condition Name Condition Details Condition Category Status Onset Date Resolution Date Last Treatment Date Treating Clinician Comments Source Coronary artery disease with stable angina pectoris Coronary artery disease with stable angina pectoris Disease Active 08-16 00:00: 00 [facility] Hypertensi on Hypertensi on Disease Active 08-16 00:00: 00 [facility] Kidney stone Kidney stone Disease Active 08-16 00:00: 00 [facility] Foreign body in esophagus, initial encounter Foreign body in esophagus, initial encounter Disease Active 18 00:00: 00 [facility] Allergies, Adverse Reactions, Alerts Allergy Name Allergy Type Status Severity Reaction(s) Onset Date Inactive Date Treating Clinician Comments Source No Known Allergie s DA Active U 2017-04 0 00:00: 00 [facility] No Known Allergie s DA Active U 12-08 00:00: 00 [facility] No Known Allergie s DA Active U 12-08 00:00: 00 [facility] NO KNOWN ALLERGIE S Drug Class Active [facility] Social History Social Habit Start Date Stop Date Quantity Comments Source Alcohol intake 2022-08-16 00:00:00 2022-08-16 00:00:00 [facility] Exposure to SARS-CoV-2 (event) 2022-07-30 00:00:00 2022-08-09 10:03:00 Not sure [facility] Sex Assigned At 1965 00:00:00 1965 00:00:00 [facility] Smoking Status Start Date Stop Date Source Never smoked tobacco [facility] Medications Ordered Medication Name Filled Medication Name Start Date Stop Date Current Medication? Ordering Clinician Indication Dosage Frequency Signature (SIG) Comments Components Source LITHIUM CARBONATE MISC 08-16 13:11: 17 Yes None Entered [facility] aspirin 81 mg EC tablet 08-16 13:11: 17 Yes 81mg Take 1 tablet by mouth in the morning. [facility] atorvastati n 40 mg tablet 08-16 13:11: 17 Yes 40mg Take 1 tablet by mouth at bedtime. [facility] losartan 50 mg tablet 08-16 13:11: 17 Yes 50mg Take 1 tablet by mouth in the morning. [facility] amLODIPine 2.5 mg tablet 08-16 13:11: 17 Yes 2.5mg Take 1 tablet by mouth in the morning. [facility] nebivolol 5 mg tablet 08-16 13:11: 17 Yes 5mg Take 1 tablet by mouth in the morning. [facility] labetaloL (NORMODYNE) injection 20 mg 2020-04 22:30: 00 02-12 21:15 :00 No 20mg 20 mg, Slow IV Push, ONCE, 1 dose, On 02/12/21 at 1730, Routine, PACU [facility] acetaminoph en (TYLENOL) tablet 650 mg 2020-04 22:26: 05 02-13 00:58 :59 No 650mg 650 mg, Oral, PRN, 1 dose, Starting on 02/12/21 at 1726, Until 02/12/21 at 1958, Routine, Pain (scale 1-3), DSU Recovery [facility] lactated ringers IV infusion 1,000 mL 2020-04 19:15: 00 Yes 1000mL at 42 mL/hr, 1,000 mL, IV Infusion, CONTINUOUS , Starting on 02/12/21 at 1415, Until Discontinu ed, Routine, PACU [facility] morpHINE injection 4 mg 2020-04 19:07: 57 Yes 4mg 4 mg, Slow IV Push, Q5MIN PRN, 2 doses, Starting on 02/12/21 at 1407, Until Discontinu ed, Routine, Pain (scale 7-10), PACU [facility] ketorolac (TORADOL) injection 30 mg 2020-04 19:07: 57 Yes 30mg 30 mg, Slow IV Push, PRN, 1 dose, Starting on 02/12/21 at 1407, Until Discontinu ed, Routine, Pain (scale 4-6), PACU
[facility] member approving Restricted medication : PAOLO ALANIZ [facility] ondansetron (ZOFRAN (PF)) injection 4 mg 2020-04 19:07: 57 Yes 4mg 4 mg, Slow IV Push, PRN, 1 dose, Starting on 02/12/21 at 1407, Until Discontinu ed, Routine, Nausea and Vomiting (N/V), PACU [facility] LITHIUM CARBONATE MISC 2020-04 17:58: 56 Yes None Entered [facility] aspirin 81 mg EC tablet 2020-04 17:58: 56 Yes 81mg Take 81 mg by mouth daily. [facility] atorvastati n 40 mg tablet 2020-04 17:58: 56 Yes 40mg Take 40 mg by mouth at bedtime. [facility] losartan 50 mg tablet 2020-04 17:58: 56 Yes 50mg Take 50 mg by mouth daily. [facility] amLODIPine 2.5 mg tablet 2020-04 17:58: 56 Yes 2.5mg Take 2.5 mg by mouth daily. [facility] nebivolol 5 mg tablet 2020-04 17:58: 56 Yes 5mg Take 5 mg by mouth daily. [facility] atorvastati n (LIPITOR) tablet 40 mg 07-10 02:00: 00 Yes 40mg 40 mg, Oral, QHS, First dose on Paola 07/10/19 at 2100, Until Discontinu ed, Routine [facility] mg EC tablet 07-09 23:08: 39 Yes 81mg Take 81 mg by mouth daily. [facility] atorvastati n 40 mg tablet 07-09 23:08: 39 Yes 40mg Take 40 mg by mouth at bedtime. [facility] losartan 50 mg tablet 07-09 23:08: 39 Yes 50mg Take 50 mg by mouth daily. [facility] amLODIPine 2.5 mg tablet 07-09 23:08: 39 Yes 2.5mg Take 2.5 mg by mouth daily. [facility] nebivolol 5 mg tablet 07-09 23:08: 39 Yes 5mg Take 5 mg by mouth daily. [facility] LITHIUM CARBONATE MISC 07-09 23:08: 39 Yes None Entered [facility] clopidogreL 75 mg tablet 07-09 20:39: 57 07-09 00:00 :00 No 75mg Take 75 mg by mouth daily. [facility] losartan (COZAAR) tablet 50 mg 07-09 14:00: 00 Yes 50mg 50 mg, Oral, DAILY, First dose on [place] 07/10/19 at 0900, Until Discontinu ed, Routine [facility] EC tablet 81 mg 07-09 14:00: 00 Yes 81mg 81 mg, Oral, DAILY, First dose on [place] 07/10/19 at 0900, Until Discontinu ed, Routine [facility] amLODIPine (NORVASC) tablet 2.5 mg 07-09 14:00: 00 Yes 2.5mg 2.5 mg, Oral, DAILY, First dose on [place] 07/10/19 at 0900, Until Discontinu ed, Routine [facility] clopidogreL (PLAVIX) tablet 75 mg 07-09 14:00: 00 07-09 14:45 :11 No 75mg 75 mg, Oral, DAILY, First dose on Sun07/10/19 at 0900, Until Discontinu ed, Routine [facility] metoprolol tartrate (LOPRESSOR) half tablet 12.5 mg 07-09 13:00: 00 Yes 12.5mg 12.5 mg, Oral, BID, First dose on Sun07/10/19 at 0800, Until Discontinu ed [facility] hydralAZINE (APRESOLINE ) injection 5 mg 07-09 04:15: 00 07-09 04:32 :00 No 5mg 5 mg, Intravenou s, ONCE NOW, 1 dose, Sun07/09/19 at 2315, Routine [facility] pantoprazol e (PROTONIX) 40 mg in NaCl 0.9% (NS) 100 mL MINI-BAG 07-09 01:30: 00 Yes 40mg 40 mg, IV Piggyback, Q12H, First dose on Sun07/09/19 at 2030, Until Discontinu ed, 100 mL [facility] ity [facility] pantoprazol e 40 mg EC tablet 07-09 00:00: 00 Yes [id number] 40mg Take 1 tablet by mouth 2 (two) times daily. [facility] lactated ringers IV infusion 1,000 mL 07-08 20:45: 00 07-09 17:02 :03 No 1000mL at 125 mL/hr, 1,000 mL, IV Infusion, CONTINUOUS , Starting Sun07/09/19 at 1545, Until Sun07/10/19 at 1202, Routine [facility] tamsulosin (FLOMAX) 0.4 mg 24 hr capsule 2011-04 00:00: 00 Yes .4mg Take 1 Cap by mouth daily. [facility] ciprofloxac in (CIPRO) 500 mg tablet 2011-04 00:00: 00 07-08 00:00 :00 No 500mg Take 1 Tab by mouth 2 (two) times daily. [facility] docusate (COLACE) 100 mg capsule 2011-04 00:00: 00 07-08 00:00 :00 No 200mg Take 2 Caps by mouth 2 (two) times daily. [facility] HYDROCODONE -ACETAMINOP HEN 5-325 MG ORAL TAB 10-05 00:00: 00 07-08 00:00 :00 No Take one by mouth every 4 to 6 hours as needed for pain. [facility] Vital Signs Vital Name Observation Time Observation Value Comments S mohini Systolic blood pressure 2021-02-12 22:00:00 155 mm[Hg] [facility] Diastolic blood pressure 2021-02-12 22:00:00 89 mm[Hg] [facility] Heart rate 2021-02-12 22:00:00 103 /min [facility] Respiratory rate 2021-02-12 22:00:00 10 /min [facility] Oxygen saturation in Arterial blood by Pulse oximetry 2021-02-12 22:00:00 93 /min [facility] Body temperature 2021-02-12 16:28:00 36 Margarita [facility] Body weight 2021-02-12 16:28:00 68.04 kg [facility] BMI 2021-02-12 16:28:00 20.92 kg/m2 [facility] Systolic blood pressure 2021-02-12 16:28:00 145 mm[Hg] [facility] Diastolic blood pressure 2021-02-12 16:28:00 90 mm[Hg] [facility] Heart rate 2021-02-12 16:28:00 108 /min [facility] Body temperature 2021-02-12 16:28:00 36 Margarita [facility] Respiratory rate 2021-02-12 16:28:00 20 /min [facility] Body weight 2021-02-12 16:28:00 68.04 kg [facility] BMI 2021-02-12 16:28:00 20.92 kg/m2 [facility] Oxygen saturation in Arterial blood by Pulse oximetry 2021-02-12 16:28:00 96 /min [facility] Systolic blood pressure 2019-07-10 16:02:00 125 mm[Hg] [facility] Diastolic blood pressure 2019-07-10 16:02:00 69 mm[Hg] [facility] Heart rate 2019-07-10 16:02:00 96 /min [facility] Body temperature 2019-07-10 16:02:00 37 Margarita [facility] Respiratory rate 2019-07-10 16:02:00 18 /min [facility] Oxygen saturation in Arterial blood by Pulse oximetry 2019-07-10 16:02:00 96 /min [facility] Body weight 2019-07-09 19:25:00 68.448 kg [facility] BMI 2019-07-09 19:25:00 21.05 kg/m2 [facility] Systolic blood pressure 2019-07-10 16:02:00 125 mm[Hg] [facility] Diastolic blood pressure 2019-07-10 16:02:00 69 mm[Hg] [facility] Heart rate 2019-07-10 16:02:00 96 /min [facility] Body temperature 2019-07-10 16:02:00 37 Margarita [facility] Respiratory rate 2019-07-10 16:02:00 18 /min [facility] Oxygen saturation in Arterial blood by Pulse oximetry 2019-07-10 16:02:00 96 /min [facility] Body weight 2019-07-09 19:25:00 68.448 kg [facility] BMI 2019-07-09 19:25:00 21.05 kg/m2 [facility] Procedures Procedure Date / Time Performed Performing Clinician Source REFERRAL- REQUEST/RESPONSE 2022-10-20 05:01:00 Doctor Unassigned, Kinsey [facility] REFERRAL- REQUEST/RESPONSE 2022-08-10 05:01:00 Doctor Unassigned, Kinsey [facility] ESOPHAGOGASTRODUODENOSCOPY 2021-02-12 18:15:00 Arvind Lopes [facility] COVID-19 (ID NOW RAPID TESTING) 17:03:00 Jeannie Yang [facility] COVID-19 (ID NOW RAPID TESTING) 17:03:00 Jeannie Yang [facility] EXTERNAL PROVIDER RECORDS 2019-08-06 05:01:00 Doctor Unassigned, Kinsey [facility] EXTERNAL PROVIDER RECORDS 2019-07-21 05:01:00 Doctor Unassigned, Kinsey [facility] GALV/CLC ONLY - URINE DRUG (IMMUNOASSAY) - COMPREHENSIVE DRUG SCREEN 2019-07-10 10:41:00 [facility] URINALYSIS 2019-07-10 10:41:00 [facility] COMP. METABOLIC PANEL ([id number]) 2019-07-10 10:32:00 [facility] PROFILE / HEMOGRAM 2019-07-10 10:32:00 [facility] EGD (ENDO) 2019-07-09 22:52:26 Yissel Wilhelm [facility] ESOPHAGOGASTRODUODENOSCOPY 2019-07-09 22:42:00 Tash Vicente [facility] COMP. METABOLIC PANEL ([id number]) 2019-07-09 22:17:00 [facility] CBC WITH DIFFERENTIAL 2019-07-09 22:17:00 Nichole [facility] Encounters Start Date/Time End Date/Time Encounter Type Admission Type Attending Clinicians Care Facility Care Department Encounter ID Source 2022-12-20 15:30:00 2022-12-20 15:30:00 Outpatient R ABELINO ODONENLL [facility] [id number] [facility] 2022-10-20 00:00:00 2022-10-20 00:00:00 Orders Only Doctor Unassigned, Kinsey [facility] [id number] 350.1.13.10 [id number] [facility] 2022-08-16 13:45:00 2022-08-16 13:45:00 Outpatient R CECY FISHER [facility] [id number] [facility] 2022-08-10 00:00:00 2022-08-10 00:00:00 Orders Only Doctor Unassigned, Kinsey [facility] [id number] 350.1.13.10 [id number] [id number] [facility] 2021-11-14 00:00:00 2021-11-14 00:00:00 Outpatient DESAI_RAKES H [facility] [id number] [facility] 2021-11-02 03:02:00 2021-11-02 03:02:00 Outpatient AMBREEN_MARGARITO [facility] [id number] [facility] 2021-04-20 10:24:00 2021-04-20 10:24:00 Outpatient DESAI_RAKES H [facility] [id number] [facility] 2021-02-12 11:27:00 2021-02-12 17:57:00 Outpatient X [facility] [id number] [facility] 2021-02-12 11:27:00 2021-02-12 17:57:00 Emergency [facility] [id number] [id number] [id number] [id number] [facility] 2021-02-12 13:00:00 2021-02-12 14:17:00 [facility] [id number] [id number] [id number] [id number] [facility] 2020-03-13 12:00:00 2020-03-13 12:00:00 Outpatient Mali Amezquita [facility] [id number] [facility] 2020-03-10 02:22:00 2020-03-10 02:22:00 Outpatient Maluf_C [facility] [id number] [facility] 2019-08-06 00:00:00 2019-08-06 00:00:00 Orders Only Doctor Unassigned, Kinsey [facility] [id number] 350.1.13.10 4.2.7.2.686 [id number] 2019-08-06 00:00:00 2019-08-06 00:00:00 Orders Only Doctor Unassigned, Kinsey [facility] [id number] 350.1.13.10 [id number] [facility] 2019-07-21 00:00:00 2019-07-21 00:00:00 Orders Only Doctor Unassigned, Kinsey [facility] [id number] 350.1.13.10 4.2.7.2.686 [id number] 2019-07-21 00:00:00 2019-07-21 00:00:00 Orders Only Doctor Unassigned, Kinsey [facility] [id number] 350.1.13.10 [id number] [id number] [facility] 2019-07-09 13:57:00 2019-07-10 17:38:00 Hospital Encounter Melonie Arnoledwin [facility] [id number] [id number] [id number] 2019-07-09 13:57:00 2019-07-10 17:38:00 Hospital Encounter Melonie Lewis Brody [facility] [id number] [id number] [id number] [facility] 2019-07-09 13:57:00 2019-07-09 13:57:00 Outpatient U ARNOL [facility]MEDWIN [facility] [id number] [facility] Results Test Description Test Time Test Comments Results Result Co mments Source BASIC METABOLIC [id number] 06:16:00* Test Item Value Reference Range Interpretation Comme nts SODIUM (test code = NA) 137 MMOL/L 137-145 N POTASSIUM (test code = K) 3.6 MMOL/L 3.5-5.1 N CHLORIDE (test code = CL) 105 MMOL/L 98-107 N CARBON DIOXIDE (test code = CO2) 25 MMOL/L 22-30 N ANION GAP (test code = GAP) 11 MMOL/L 14-24 L GLUCOSE (test code = GLU) 97 MG/DL 74-106 N BLOOD UREA NITROGEN (test code = BUN) 13 MG/DL 9-20 N GLOMERULAR FILTRATION RATE (test code = GFR) > 60 Reporting units: ml/min/1.73 m2 (Modified MDRD Formula)Reference Range: > or = 60 ml/min/1.73 m2 CREATININE (test code = CREAT) 0.80 MG/DL 0.66-1.25 N CALCIUM (test code = CA) 8.6 MG/DL 8.4-10.2 N LIPID PROFILE (CORONARY RISK)2020-03-14 06:15:00* Test Item Value Reference Range Interpretation Comme nts TRIGLYCERIDES (test code = TRIG) 45 MG/DL TRIGLYCERIDES REFERENCE RANGE:Normal: <150 mg/dLBorderline High: 150-199 mg/dLHigh: 200-499 mg/dLVery High: >=500 mg/dL CHOLESTEROL (test code = CHOL) 130 MG/DL <200 HDL CHOLESTEROL (test code = HDL) 50 MG/DL 40-59 N LIPOPROTEIN LDL (test code = LDL) MG/DL 0-99 LIPID PROFILE (CORONARY RISK)2020-03-14 06:14:00* Test Item Value Reference Range Interpretation Comme nts TRIGLYCERIDES (test code = TRIG) MG/DL CHOLESTEROL (test code = CHOL) 130 MG/DL <200 HDL CHOLESTEROL (test code = HDL) MG/DL 40-59 LIPOPROTEIN LDL (test code = LDL) MG/DL 0-99 CBC W/AUTO [id number] 05:30:00* Test Item Value Reference Range Interpretation Comme nts WHITE BLOOD CELL (test code = WBC) 6.4 K/MM3 3.8-9.8 N RED BLOOD CELL (test code = RBC) 4.50 M/MM3 3.95-5.67 N HEMOGLOBIN (test code = HGB) 14.7 G/DL 12.4-16.7 N HEMATOCRIT (test code = HCT) 44.6 % 35.9-49.5 N MEAN CELL VOLUME (test code = MCV) 99 fL 81.7-96.1 H MEAN CELL HGB (test code = MCH) 32.7 pg 27.6-33.2 N MEAN CELL HGB CONCETRATION (test code = MCHC) 33.0 % 32.9-35.5 N RED CELL DISTRIBUTION WIDTH (test code = RDW) 12.7 % 12.1-15.2 N PLATELET COUNT (test code = PLT) 200 K/MM3 129-368 N MEAN PLATELET VOLUME (test c ode = MPV) 9.9 fl 7.4-10.4 N NEUTROPHIL % (test code = NT%) 61.2 % 43-75 N IMMATURE GRANULOCYTE % (test code = IG%) 0.5 % 0.0-2.0 N LYMPHOCYTE % (test code = LY%) 23.1 % 14-44 N MONOCYTE % (test code = MO%) 10.1 % 4-13 N EOSINOPHIL % (test code = EO%) 3.9 % 0-6 N BASOPHIL % (test code = BA%) 1.2 % 0-2 N NUCLEATED RBC % (test code = NRBC%) 0.0 % 0-1.0 N NEUTROPHIL # (test code = NT#) 3.93 K/mm3 2.0-7.6 N IMMATURE GRANULOCYTE # (test code = IG#) 0.03 x10 3/uL 0-0.03 N LYMPHOCYTE # (test code = LY#) 1.48 K/mm3 1.0-3.8 N MONOCYTE # (test code = MO#) 0.65 K/mm3 0.1-0.8 N EOSINOPHIL # (test code = EO#) 0.25 K/mm3 0.0-0.2 H BASOPHIL # (test code = BA#) 0.08 K/mm3 0.0-0.2 N NUCLEATED RBC # (test code = NRBC#) 0.00 K/mm3 0.0-0.1 N [id number] 08:40:00* Test Item Value Reference Range Interpretation Comme nts ACT-ISTAT (test code = ACTI) 235 SEC 74-137 H BASIC METABOLIC [id number] 07:28:00* Test Item Value Reference Range Interpretation Comme nts SODIUM (test code = NA) 138 MMOL/L 137-145 N POTASSIUM (test code = K) 3.9 MMOL/L 3.5-5.1 N CHLORIDE (test code = CL) 104 MMOL/L 98-107 N CARBON DIOXIDE (test code = CO2) 25 MMOL/L 22-30 N ANION GAP (test code = GAP) 13 MMOL/L 14-24 L GLUCOSE (test code = GLU) 102 MG/DL 74-106 N BLOOD UREA NITROGEN (test code = BUN) 13 MG/DL 9-20 N GLOMERULAR FILTRATION RATE (test code = GFR) > 60 Reporting units: ml/min/1.73 m2 (Modified MDRD Formula)Reference Range: > or = 60 ml/min/1.73 m2 CREATININE (test code = CREAT) 0.90 MG/DL 0.66-1.25 N CALCIUM (test code = CA) 9.0 MG/DL 8.4-10.2 N LIPID PROFILE (CORONARY RISK)2020-03-13 07:28:00* Test Item Value Reference Range Interpretation Comme nts TRIGLYCERIDES (test code = TRIG) 48 MG/DL TRIGLYCERIDES REFERENCE RANGE:Normal: <150 mg/dLBorderline High: 150-199 mg/dLHigh: 200-499 mg/dLVery High: >=500 mg/dL CHOLESTEROL (test code = CHOL) 147 MG/DL <200 HDL CHOLESTEROL (test code = HDL) 52 MG/DL 40-59 N LIPOPROTEIN LDL (test code = LDL) 78 MG/DL 0-99 N OPTIMAL......... <100 mg/dLNEAR OPTIMAL/ABOVE OPTIMAL.........100-12 9 mg/dL BORDERLINE HIGH.........130-159 mg/dL HIGH.........160-189 mg/dL VERY HIGH.........>/= 190 mg/dL [id number] 07:28:00* Test Item Value Reference Range Interpretation Comme nts MAGNESIUM (test code = MAG) 1.9 MG/DL 1.6-2.3 N BASIC METABOLIC [id number] 07:17:00* Test Item Value Reference Range Interpretation Comme nts SODIUM (test code = NA) 138 MMOL/L 137-145 N POTASSIUM (test code = K) 3.9 MMOL/L 3.5-5.1 N CHLORIDE (test code = CL) 104 MMOL/L 98-107 N CARBON DIOXIDE (test code = CO2) 25 MMOL/L 22-30 N ANION GAP (test code = GAP) 13 MMOL/L 14-24 L GLUCOSE (test code = GLU) 102 MG/DL 74-106 N BLOOD UREA NITROGEN (test code = BUN) 13 MG/DL 9-20 N GLOMERULAR FILTRATION RATE (test code = GFR) > 60 Reporting units: ml/min/1.73 m2 (Modified MDRD Formula)Reference Range: > or = 60 ml/min/1.73 m2 CREATININE (test code = CREAT) 0.90 MG/DL 0.66-1.25 N CALCIUM (test code = CA) 9.0 MG/DL 8.4-10.2 N LIPID PROFILE (CORONARY RISK)2020-03-13 07:17:00* Test Item Value Reference Range Interpretation Comme nts TRIGLYCERIDES (test code = TRIG) 48 MG/DL TRIGLYCERIDES REFERENCE RANGE:Normal: <150 mg/dLBorderline High: 150-199 mg/dLHigh: 200-499 mg/dLVery High: >=500 mg/dL CHOLESTEROL (test code = CHOL) 147 MG/DL <200 HDL CHOLESTEROL (test code = HDL) MG/DL 40-59 LIPOPROTEIN LDL (test code = LDL) MG/DL 0-99 [id number] 07:17:00* Test Item Value Reference Range Interpretation Comme nts MAGNESIUM (test code = MAG) MG/DL 1.6-2.3 BASIC METABOLIC [id number] 07:17:00* Test Item Value Reference Range Interpretation Comme nts SODIUM (test code = NA) 138 MMOL/L 137-145 N POTASSIUM (test code = K) 3.9 MMOL/L 3.5-5.1 N CHLORIDE (test code = CL) 104 MMOL/L 98-107 N CARBON DIOXIDE (test code = CO2) 25 MMOL/L 22-30 N ANION GAP (test code = GAP) 13 MMOL/L 14-24 L GLUCOSE (test code = GLU) 102 MG/DL 74-106 N BLOOD UREA NITROGEN (test code = BUN) 13 MG/DL 9-20 N GLOMERULAR FILTRATION RATE (test code = GFR) > 60 Reporting units: ml/min/1.73 m2 (Modified MDRD Formula)Reference Range: > or = 60 ml/min/1.73 m2 CREATININE (test code = CREAT) 0.90 MG/DL 0.66-1.25 N CALCIUM (test code = CA) 9.0 MG/DL 8.4-10.2 N LIPID PROFILE (CORONARY RISK)2020-03-13 07:17:00* Test Item Value Reference Range Interpretation Comme nts TRIGLYCERIDES (test code = TRIG) 48 MG/DL TRIGLYCERIDES REFERENCE RANGE:Normal: <150 mg/dLBorderline High: 150-199 mg/dLHigh: 200-499 mg/dLVery High: >=500 mg/dL CHOLESTEROL (test code = CHOL) 147 MG/DL <200 HDL CHOLESTEROL (test code = HDL) 52 MG/DL 40-59 N LIPOPROTEIN LDL (test code = LDL) MG/DL 0-99 [id number] 07:17:00* Test Item Value Reference Range Interpretation Comme nts MAGNESIUM (test code = MAG) 1.9 MG/DL 1.6-2.3 N BASIC METABOLIC [id number] 07:16:00* Test Item Value Reference Range Interpretation Comme nts SODIUM (test code = NA) 138 MMOL/L 137-145 N POTASSIUM (test code = K) 3.9 MMOL/L 3.5-5.1 N CHLORIDE (test code = CL) 104 MMOL/L 98-107 N CARBON DIOXIDE (test code = CO2) MMOL/L 22-30 GLUCOSE (test code = GLU) MG/DL 74-106 BLOOD UREA NITROGEN (test co de = BUN) MG/DL 9-20 GLOMERULAR FILTRATION RATE ( test code = GFR) CREATININE (test code = CREAT) MG/DL 0.66-1.25 CALCIUM (test code = CA) MG/DL 8.7-9.7 LIPID PROFILE (CORONARY RISK)2020-03-13 07:16:00* Test Item Value Reference Range Interpretation Comme nts TRIGLYCERIDES (test code = TRIG) MG/DL CHOLESTEROL (test code = CHOL) 147 MG/DL <200 HDL CHOLESTEROL (test code = HDL) MG/DL 40-59 LIPOPROTEIN LDL (test code = LDL) MG/DL 0-99 [id number] 07:16:00* Test Item Value Reference Range Interpretation Comme nts MAGNESIUM (test code = MAG) MG/DL 1.6-2.3 BASIC METABOLIC [id number] 07:16:00* Test Item Value Reference Range Interpretation Comme nts SODIUM (test code = NA) 138 MMOL/L 137-145 N POTASSIUM (test code = K) 3.9 MMOL/L 3.5-5.1 N CHLORIDE (test code = CL) 104 MMOL/L 98-107 N CARBON DIOXIDE (test code = CO2) MMOL/L 22-30 GLUCOSE (test code = GLU) MG/DL 74-106 BLOOD UREA NITROGEN (test code = BUN) MG/DL 9-20 GLOMERULAR FILTRATION RATE (test code = GFR) > 60 Reporting units: ml/min/1.73 m2 (Modified MDRD Formula)Reference Range: > or = 60 ml/min/1.73 m2 CREATININE (test code = CREAT) 0.90 MG/DL 0.66-1.25 N CALCIUM (test code = CA) MG/DL 8.7-9.7 LIPID PROFILE (CORONARY RISK)2020-03-13 07:16:00* Test Item Value Reference Range Interpretation Comme nts TRIGLYCERIDES (test code = TRIG) MG/DL CHOLESTEROL (test code = CHOL) 147 MG/DL <200 HDL CHOLESTEROL (test code = HDL) MG/DL 40-59 LIPOPROTEIN LDL (test code = LDL) MG/DL 0-99 [id number] 07:16:00* Test Item Value Reference Range Interpretation Comme nts MAGNESIUM (test code = MAG) MG/DL 1.6-2.3 BASIC METABOLIC [id number] 07:14:00* Test Item Value Reference Range Interpretation Comme nts SODIUM (test code = NA) 138 MMOL/L 137-145 N POTASSIUM (test code = K) 3.9 MMOL/L 3.5-5.1 N CHLORIDE (test code = CL) 104 MMOL/L 98-107 N CARBON DIOXIDE (test code = CO2) MMOL/L 22-30 GLUCOSE (test code = GLU) MG/DL 74-106 BLOOD UREA NITROGEN (test co de = BUN) MG/DL 9-20 GLOMERULAR FILTRATION RATE ( test code = GFR) CREATININE (test code = CREAT) MG/DL 0.66-1.25 CALCIUM (test code = CA) MG/DL 8.7-9.7 LIPID PROFILE (CORONARY RISK)2020-03-13 07:14:00* Test Item Value Reference Range Interpretation Comme nts TRIGLYCERIDES (test code = TRIG) MG/DL CHOLESTEROL (test code = CHOL) MG/DL <200 HDL CHOLESTEROL (test code = HDL) MG/DL 40-59 LIPOPROTEIN LDL (test code = LDL) MG/DL 0-99 [id number] 07:14:00* Test Item Value Reference Range Interpretation Comme nts MAGNESIUM (test code = MAG) MG/DL 1.6-2.3 BASIC METABOLIC [id number] 07:13:00* Test Item Value Reference Range Interpretation Comme nts SODIUM (test code = NA) MMOL/L 137-145 POTASSIUM (test code = K) MMOL/L 3.5-5.1 CHLORIDE (test code = CL) 104 MMOL/L 98-107 N CARBON DIOXIDE (test code = CO2) MMOL/L 22-30 GLUCOSE (test code = GLU) MG/DL 74-106 BLOOD UREA NITROGEN (test co de = BUN) MG/DL 9-20 GLOMERULAR FILTRATION RATE ( test code = GFR) CREATININE (test code = CREAT) MG/DL 0.66-1.25 CALCIUM (test code = CA) MG/DL 8.7-9.7 LIPID PROFILE (CORONARY RISK)2020-03-13 07:13:00* Test Item Value Reference Range Interpretation Comme nts TRIGLYCERIDES (test code = TRIG) MG/DL CHOLESTEROL (test code = CHOL) MG/DL <200 HDL CHOLESTEROL (test code = HDL) MG/DL 40-59 LIPOPROTEIN LDL (test code = LDL) MG/DL 0-99 [id number] 07:13:00* Test Item Value Reference Range Interpretation Comme nts MAGNESIUM (test code = MAG) MG/DL 1.6-2.3 PROTHROMBIN [id number] 06:45:00* Test Item Value Reference Range Interpretation Comme nts PROTHROMBIN TIME PATIENT (test code = PTP) 11.3 SECONDS 9.4-12.5 N INTERNATIONAL NORMAL RATIO (test code = INR) 1.0 The INR is to be used only for monitoring oral anticoagulanttherap y. INDICATION INR VALUE -------1. Prophylaxis, deep venous thrombosis, including high risk surgery. 2.0 - 3.0 2. Prophylaxis, deep venous thrombosis, hip surgery, treatment for deep venous thrombosis or pulmonary prevention of systemic embolism in patients with valvular heart disease, atrial fibrillation, tissue heart valve, or acute myocardial infarction. 2.0 - 3.0 3. Mechanical prosthesis heart valves, recurrent systemic embolism. 3.0 - 4.5 PTT [id number] 06:45:00* Test Item Value Reference Range Interpretation Comme nts PTT ACTIVATED (test code = APTT) 28.4 SECONDS 25.1-36.5 N CBC W/AUTO [id number] 06:35:00* Test Item Value Reference Range Interpretation Comme nts WHITE BLOOD CELL (test code = WBC) 7.2 K/MM3 3.8-9.8 N RED BLOOD CELL (test code = RBC) 4.69 M/MM3 3.95-5.67 N HEMOGLOBIN (test code = HGB) 15.5 G/DL 12.4-16.7 N HEMATOCRIT (test code = HCT) 45.0 % 35.9-49.5 N MEAN CELL VOLUME (test code = MCV) 96 fL 81.7-96.1 N MEAN CELL HGB (test code = MCH) 33.0 pg 27.6-33.2 N MEAN CELL HGB CONCETRATION (test code = MCHC) 34.4 % 32.9-35.5 N RED CELL DISTRIBUTION WIDTH (test code = RDW) 13.0 % 12.1-15.2 N PLATELET COUNT (test code = PLT) 219 K/MM3 129-368 N MEAN PLATELET VOLUME (test c ode = MPV) 9.4 fl 7.4-10.4 N NEUTROPHIL % (test code = NT%) 54.2 % 43-75 N IMMATURE GRANULOCYTE % (test code = IG%) 0.1 % 0.0-2.0 N LYMPHOCYTE % (test code = LY%) 25.7 % 14-44 N MONOCYTE % (test code = MO%) 13.6 % 4-13 H EOSINOPHIL % (test code = EO%) 4.6 % 0-6 N BASOPHIL % (test code = BA%) 1.8 % 0-2 N NUCLEATED RBC % (test code = NRBC%) 0.0 % 0-1.0 N NEUTROPHIL # (test code = NT#) 3.87 K/mm3 2.0-7.6 N IMMATURE GRANULOCYTE # (test code = IG#) 0.01 x10 3/uL 0-0.03 N LYMPHOCYTE # (test code = LY#) 1.84 K/mm3 1.0-3.8 N MONOCYTE # (test code = MO#) 0.97 K/mm3 0.1-0.8 H EOSINOPHIL # (test code = EO#) 0.33 K/mm3 0.0-0.2 H BASOPHIL # (test code = BA#) 0.13 K/mm3 0.0-0.2 N NUCLEATED RBC # (test code = NRBC#) 0.00 K/mm3 0.0-0.1 N COVID 19 Asymptomatic IH [id number] 05:55:00* Test Item Value Reference Range Interpretation Comme nts COVID 19 Asymptomatic IH AG (test code = COVNONPUIAG) NEGATIVE Negative "Negative result s from patients with symptom onset beyondfive days, should be treated as presumptive, andconfirmation with a molecular assay, if necessary forpatient management may be performed. Negative results do notrule out COVID-19 and should not be used as the sole basisfor treatment or patient management decisions, includinginfection control decisions. Negative results should beconsidered in the context of a patients recent exposures,history, and the presence of clinical signs and symptomsconsistent with COVID-19.This test detects both viable andnon-viable SARS-CoV and SARS CoV-2.Test performance dependson the amount of virus (antigen) in the sample." DRUG PANEL 2 [id number] 13:03:00* Test Item Value Reference Range Interpretation Comme nts AMPHET (test code = 3428259370) Presumptive Positive Negative A RAZIA U (test code = 3449887020) Negative Negative BENZO U (test code = 1252911767) Negative Negative Cocaine Metabolite (test code = 3432518352) Negative Negative METHADONE (test code = 6447159678) Negative Negative OPIATES (test code = 8303053079) Negative Negative PCP (test code = 3043168040) Negative Negative THC (test code = 7725681388) Negative Negative VERONICA (test code = VERONICA) Urine Drug Cutoff Ranges Cocaine: ? 150 ng/mLBenzodiazepines: ? ? 200 ng/mLMethadone: ? 300 ng/mLAmphetamine: ? 1,000 ng/mLOpiates: ? 300 ng/mLCannabinoids: ?50 ng/mLPhencyclidine: ? ? ? 25 ng/mLBarbiturates: ?200 ng/mL The results are to be used only for medical (i.e., treatment) purposes. Unconfirmed screening results must not be used for non-medical purposes (e.g., employment testing, legal testing). Lab Interpretation (test code = 88833-1) [facility] 11:29:00* Test Item Value Reference Range Interpretation Comme nts APPEARANCE (test code = 3755835746) Clear Clear COLOR (test code = 0171981119) Yellow Yellow PH (test code = 0761565944) 4.8-8.0 SP GRAVITY (test code = 8464399369) 1.003-1.030 GLU U QUAL (test code = 6648122764) Normal Normal BLOOD (test code = 5162377387) 1+ Negative A KETONES (test code = 9140802996) Negative Negative PROTEIN (test code = 2887-8) Negative Negative UROBILIN (test code = 0086603490) Normal Normal BILIRUBIN (test code = 8656268974) Negative Negative NITRITE (test code = 3282700234) Negative Negative LEUK XAVIER (test code = 8084039652) Negative Negative RBC/HPF (test code = 5406924991) See_Comment [Automated Qulsar] The system which generated this result transmitted reference range: 0 - 3 HPF. The reference range was not used to interpret this result as normal/abnormal. WBC/HPF (test code = 4025470019) See_Comment [Automated Qulsar] The system which generated this result transmitted reference range: 0 - 5 HPF. The reference range was not used to interpret this result as normal/abnormal. BACTERIA (test code = 9948641687) Negative Negative SQ EPITH (test code = 9574241845) <1 See_Comment [Automated Qulsar] The system which generated this result transmitted reference range: <=2 HPF. The reference range was not used to interpret this result as normal/abnormal. ASCORBIC ACID (test code = 1808889325) Negative Lab Interpretation (test code = 50506-1) [facility]normal [facility] MET[facility]OLIC PANEL (34896)2019-07-10 11:22:00* Test Item Value Reference Range Interpretation Comme nts NA (test code = 9449256613) 135 mmol/L 135-145 K (test code = 3571037242) 4.2 mmol/L 3.5-5 Slight hemolysis CL (test code = 1146239574) 104 mmol/L 98-108 CO2 TOTAL (test code = 7685429586) 23 mmol/L 23-31 AGAP (test code = 4262729798) 2-16 BUN (test code = 6170430274) 22 mg/dL 7-23 Slight hemolysis GLUCOSE (test code = 4677269090) 109 mg/dL 70-110 CREATININE (test code = 0083543855) 0.68 mg/dL 0.6-1.25 TOTAL BILI (test code = 4189383637) 1.6 mg/dL 0.1-1.1 H CALCIUM (test code = 7769675022) 8.8 mg/dL 8.6-10.6 T PROTEIN (test code = 3871796143) 7.4 g/dL 6.3-8.2 ALBUMIN (test code = 2342047950) 3.9 g/dL 3.5-5 ALK PHOS (test code = 8927592871) 74 U/L 34-122 Slight hemolysis ALTv (test code = 1742-6) 21 U/L 5-50 AST(SGOT) (test code = 0494567418) 45 U/L 13-40 H Slight hemolysis eGFR Calculation (Non-) (test code = 5211263207) mL/min/1.73m2 eGFR Calculation () (test code = 4264446642) mL/min/1.73m2 VERONICA (test code = VERONICA) Association of Glomerular Filtration Rate (GFR) and Staging of Kidney Disease* + -----+ --------+ +| GFR (mL/min/1.73 m2) ?| With Kidney Damage ?| ?Without Kidney Damage+ +------- +---- --+| ?>90 ?| ?Stage one ?| ? Normal ?+ ------+ ---------+--------- +| ?60-89 ?| ?Stage two ?| ? Decreased GFR ? + -----+ --------+ +| ?30-59 ?| ?Stage three ?| ? Stage three ? + -----+ --------+ +| ?15-29 ?| ?Stage four ? | ? Stage four ?+ ------+ ---------+--------- +| ?<15 (or dialysis) ? ?| ?Stage five ? | ? Stage five ?+ ------+ ---------+--------- + *Each stage assumes the associated GFR level has been in effect for at least three months. ?Stages 1 to 5, with or without kidney disease, indicate chronic kidney disease. Notes: Determination of stages one and two (with eGFR >59mL/min/1.73 m2) requires estimation of kidney damage for at least three months as defined by structural or functional abnormalities of the kidney, manifested by either:Pathological abnormalities or Markers of kidney damage (including abnormalities in the composition of the blood or urine or abnormalities in imaging tests). Lab Interpretation (test code = 64675-5) Abnormal [facility] / [id number] 11:04:00* Test Item Value Reference Range Interpretation Comme nts WBC (test code = 6690-2) See_Comment H [Automated message] The system which generated this result transmitted reference range: 4.20 - 10.70 10*3/?L. The reference range was not used to interpret this result as normal/abnormal. RBC (test code = 789-8) See_Comment [Automated message] The system which generated this result transmitted reference range: 4.26 - 5.52 10*6/?L. The reference range was not used to interpret this result as normal/abnormal. HGB (test code = 718-7) 15.3 g/dL 12.2-16.4 HCT (test code = 4544-3) 44.3 % 38.4-49.3 MCH (test code = 785-6) 32.1 pg 26.1-32.7 MCV (test code = 787-2) 93.1 fL 81.7-95.6 MCHC (test code = 786-4) 34.5 g/dL 31.2-35 PLT (test code = 777-3) See_Comment [Automated message] The system which generated this result transmitted reference range: 150 - 328 10*3/?L. The reference range was not used to interpret this result as normal/abnormal. MPV (test code = 44499-0) 10.6 fL 9.8-13 RDW-CV (test code = 788-0) 12.6 % 12.1-15.4 RDW-SD (test code = 42787-0) 43.0 fL 38.5-51.6 NRBC x10^3 (test code = 2824721119) <0.01 See_Comment [Automated Qulsar] The system which generated this result transmitted reference range: 10*3/?L. The reference range was not used to interpret this result as normal/abnormal. NRBC/100 WBC (test code = 6115443673) See_Comment [Automated Qulsar] The system which generated this result transmitted reference range: 0.0 - 10.0 /100 WBCs. The reference range was not used to interpret this result as normal/abnormal. IPF % (test code = 7237012754) Lab Interpretation (test code = 66772-2) Abnormal [facility]. METABOLIC PANEL (75514)2019-07-09 23:13:00* Test Item Value Reference Range Interpretation Comme nts NA (test code = 0479996771) 142 mmol/L 135-145 K (test code = 1313599274) 3.5 mmol/L 3.5-5 CL (test code = 6863974801) 104 mmol/L 98-108 CO2 TOTAL (test code = 2900864687) 22 mmol/L 23-31 L AGAP (test code = 0320080126) 2-16 BUN (test code = 2087897390) 26 mg/dL 7-23 H GLUCOSE (test code = 4238020337) 115 mg/dL 70-110 H CREATININE (test code = 3573486053) 0.90 mg/dL 0.6-1.25 TOTAL BILI (test code = 4856002409) 2.1 mg/dL 0.1-1.1 H CALCIUM (test code = 8788455866) 10.1 mg/dL 8.6-10.6 T PROTEIN (test code = 5717497431) 9.7 g/dL 6.3-8.2 H ALBUMIN (test code = 0404690881) 5.1 g/dL 3.5-5 H ALK PHOS (test code = 7624415818) 126 U/L 34-122 H ALTv (test code = 1742-6) 31 U/L 5-50 AST(SGOT) (test code = 4270382280) 51 U/L 13-40 H eGFR Calculation (Non-) (test code = 3748683131) mL/min/1.73m2 eGFR Calculation () (test code = 5505810650) mL/min/1.73m2 VERONICA (test code = VERONICA) Association of Glomerular Filtration Rate (GFR) and Staging of Kidney Disease* + --+ --+ ------+| GFR (mL/min/1.73 m2) ?| With Kidney Damage ?| ?Without Kidney Damage+ --------+ --------+ +| ?>90 ?| ?Stage one ?| ? Normal ?+ ---+ ---+ -------+| ?60-89 ?| ?Stage two ?| ? Decreased GFR ? + --+ --+ ------+| ?30-59 ?| ?Stage three ?| ? Stage three ? + --+ --+ ------+| ?15-29 ?| ?Stage four ? | ? Stage four ?+ ---+ ---+ -------+| ?<15 (or dialysis) ? ?| ?Stage five ? | ? Stage five ?+ ---+ ---+ -------+ *Each stage assumes the associated GFR level has been in effect for at least three months. ?Stages 1 to 5, with or without kidney disease, indicate chronic kidney disease. Notes: Determination of stages one and two (with eGFR >59mL/min/1.73 m2) requires estimation of kidney damage for at least three months as defined by structural or functional abnormalities of the kidney, manifested by either:Pathological abnormalities or Markers of kidney damage (including abnormalities in the composition of the blood or urine or abnormalities in imaging tests). Lab Interpretation (test code = 46998-4) Abnormal [facility] WITH [id number] 22:39:00* Test Item Value Reference Range Interpretation Comme nts WBC (test code = 6690-2) See_Comment H [Automated message] The system which generated this result transmitted reference range: 4.20 - 10.70 10*3/?L. The reference range was not used to interpret this result as normal/abnormal. RBC (test code = 789-8) See_Comment H [Automated message] The system which generated this result transmitted reference range: 4.26 - 5.52 10*6/?L. The reference range was not used to interpret this result as normal/abnormal. HGB (test code = 718-7) 18.6 g/dL 12.2-16.4 H HCT (test code = 4544-3) 54.1 % 38.4-49.3 H MCV (test code = 787-2) 91.9 fL 81.7-95.6 MCH (test code = 785-6) 31.6 pg 26.1-32.7 MCHC (test code = 786-4) 34.4 g/dL 31.2-35 RDW-SD (test code = 84984-4) 42.6 fL 38.5-51.6 RDW-CV (test code = 788-0) 12.6 % 12.1-15.4 PLT (test code = 777-3) See_Comment [Automated message] The system which generated this result transmitted reference range: 150 - 328 10*3/?L. The reference range was not used to interpret this result as normal/abnormal. MPV (test code = 60480-6) 10.0 fL 9.8-13 NRBC/100 WBC (test code = 8552497085) See_Comment [Automated message] The system which generated this result transmitted reference range: 0.0 - 10.0 /100 WBCs. The reference range was not used to interpret this result as normal/abnormal. NRBC x10^3 (test code = 3647404065) <0.01 See_Comment [Automated message] The system which generated this result transmitted reference range: 10*3/?L. The reference range was not used to interpret this result as normal/abnormal. GRAN MAT (NEUT) % (test code = 770-8) 79.9 % IMM GRAN % (test code = 2164467557) 0.40 % LYMPH % (test code = 736-9) 10.8 % MONO % (test code = 5905-5) 8.2 % EOS % (test code = 713-8) 0.2 % BASO % (test code = 706-2) 0.5 % GRAN MAT x10^3(ANC) (test code = 4287401896) 10.53 10*3/uL 1.99-6.95 H IMM GRAN x10^3 (test code = 3856465631) 0.05 10*3/uL 0-0.06 LYMPH x10^3 (test code = 731-0) 1.42 10*3/uL 1.09-3.23 MONO x10^3 (test code = 742-7) 1.08 10*3/uL 0.36-1.02 H EOS x10^3 (test code = 711-2) 0.03 10*3/uL 0.06-0.53 L BASO x10^3 (test code = 704-7) 0.06 10*3/uL 0.01-0.09 Lab Interpretation (test code = 30603-9) [facility]normal [facility]TER,[id number] 12:44:00 RUN DATE: 02/19/18 [facility] - Lab PAGE 1 RUN TIME: 1244 Specimen Inquiry RUN USER: INTERFACE -PATIENT: TIMMY LINARES JA LOC: SamADRIANDomingo U #: [id number] AGE/SX: 53/M ROOM: [facility] RE02/16/18REG DR: Adrien Roque MD : 65 BED: A DIS: STATUS: ADM IN TLOC: SPEC #: [id number] RECD: 02/18/18 STATUS: GIANNI REFrances #: [id number] MALIHA: 02/18/[address]: Adrien Roque MD ENTERED: 02/18/18 SP TYPE: ARTERY, PL OTHR DR: Mali Amezquita MD ORDERED: DECAL, SURG PATH LVL 3, SURG PATH LVL 4 CODES: [id number] - PLAQUE, NOS [id number] - ARTERY, NOS [id number] - CAROTID ARTERY DEGENERATION, N [id number] - CAROTID ARTERY NEOPLASM, MALIG [id number] - CERVIX EXCISIONAL BIOP [id number] -LYMPH NODE, NOS COPIES TO: Mali Amezquita MD [address] [place] [address] [address] [place], [place] [id number] [email or web address] [place] [address] [place] [address] PROCEDURES: DECAL (02/19/18-1002) SURG PATH LVL 3 (02/18/18) SURG PATH LVL 4 (02/18/18) TISSUES: A. ARTERY, NOS - LT CAROTID PLAQUE B. LYMPH NODE, NOS - LT CERVICAL LYMPH NODE CLINICAL HISTORY CAD CPT CODES CPT CODE(S): 53151 , 75213 , 35024 , , , , FINAL DIAGNOSIS A. Plaque, left carotid artery, endarterectomy: ATHEROMATOUS PLAQUE FORMATION WITH CALCIFIC DEGENERATION NO ATYPIA NO MALIGNANCY CONTINUED ON NEXT PAGE RUN DATE: 02/19/18 [facility] - Lab PAGE 2 RUN TIME: 1244 Specimen Inquiry RUN USER: INTERFACE SPEC #: [id number] PATIENT: TIMMY LINARES JA #[id number] (Continued)-------- ---- FINAL DIAGNOSIS (Continued) B. Lymph node, left cervical, excisional biopsy: MILD, NONSPECIFIC REACTIVE CHANGES GROSS DESCRIPTION A. Left carotid plaque. The specimen consists of a Y-shaped segment of plaque measuring 3.2 x 1.5 x 1 cm. Sectioning reveals a calcified wall. Section submitted for decalcification asA1. B. Left cervical lymph node. The specimen consists of a single node measuring 1.1 x 1 x 0.5 cm. Serially sectioned and submitted as B1. /tc/pdb MICROSCOPIC DESCRIPTION A. Left carotid plaque. Benign vascular stromal tissue, hyalinized fibrosis and focal dystrophic calcification. No atypia. No m alignancy. B. Left cervical lymph node. Benign lymph node with mild paracortical and sinusoidal reactive changes. No atypia or malignancy identified. /tobi Signed SIGNATURE ON FILE Dominick Pennington 02/19/18 1244 END OF REPORT Notes Date/Time Note Provider Source 2020-03-14 10:03:00 [facility] Hospitalist Discharge Summary REPORT#:[id number] REPORT STATUS: Signed DATE:03/14/20 TIME: 1003 PATIENT: TIMMY LINARES UNIT #: [id number] ROOM/BED: [address] : 65 AGE: 55 SEX: M ATTEND: Donnell Rashid MD ADM AUTHOR: Donnell Rashid MD * ALL edits or amendments must be made on the electronic/computer document * PCP PCP PCP: PCP: No Primary or Family Physician Discharge to: home General Information Problem List/A P: 1. Unstable angina 2. Coronary artery disease A P s/p PTCA/Stent placement in LAD. 3. Carotid artery disease 4. Hypertension 5. Hyperlipidemia 6. Tobacco dependence Date of admission: Observation Start Date: 03/13/20 Date of admission: 03/13/20 Discharge date: 03/14/20 Hospital course: HPI (03/13/2020): Patient is a 55-year-old male with known HTN, HLD , CAD, and carotid artery disease who had cardiac catheterization in January 2018 when he was noted to have 60% mid lesion in LAD. At the same time he was noted to have significant blockage of left internal carotid artery for which he underwent left carotid endarterectomy. For the coronary artery disease he was managed with medical treatment. Recently he started having exertional angina for which he saw his media theorist and author of Dr. Amezquita. He underwent diagnostic work-up including echocardiogram and nuclear medicine stress test; the stress test was noted to be abnormal with reversible ischemia as well as decreased ejection fraction. Cardiac catheterization was planned which was done this morning and it showed that the LAD lesion had increased to approximately 75%. He underwent angioplasty as well as stent placement of the lesion. He was also noted to have 20 to 50% lesions in other coronary arteries. He is now admitted to the telemetry unit for overnight observation. 03/14/2020: - Patient doing well; no chest pain; no pain or swelling in the right groin. - Labs unremarkable. - D/C home. Consultants: cardiology Pt. condition on discharge: improved Med Rec Med Rec Discharge meds: Continue taking these medications: ASPIRIN (ASPIRIN) 81 MG TAB.CHEW 81 MILLIGRAM ORAL DAILY. CLOPIDOGREL (PLAVIX) 75 MG TAB 75 MILLIGRAM ORAL DAILY. LOSARTAN (COZAAR) 100 MG TAB DAILY. amLODIPine (NORVASC) 2.5 MG TAB 2.5 MILLIGRAM ORAL DAILY. METOPROLOL TARTRATE (LOPRESSOR) 50 MG TAB 50 MILLIGRAM ORAL DAILY. ATORVASTATIN (LIPITOR) 40 MG TAB 40 MILLIGRAM ORAL DAILY. Discharge Instructions PCP PCP: PCP: No Primary or Family Physician )( Discharge to: Home/Self Care Discharge Instructions Additional Discharge Routines: Apartment Leasing Manager Follow-Up )( Diet: Cardiac Prescriptions: none Discharge management: less than 30 mins, face to face encounter Follow-up Appointments Consulting provider 1: Provider 1: Mali Amezquita MD Specialty: CARDIOVASC DIS Objective General VS/I O: Vital Signs: Date Time Temp Pulse Resp B/P B/P Pulse O2 O2 Flow FiO2 Mean Ox Delivery Rate 03/14 0719 98.1 88 18 136/79 98.0 99 03/14 0336 97.9 86 17 133/80 97.5 92 03/13 2317 98.8 79 17 115/72 86.4 94 03/13 1938 97.9 80 17 126/75 92.0 96 03/13 1659 97.9 86 16 122/70 87.3 94 03/13 1334 98.8 87 16 147/86 106.6 95 24 hour I O ending at 0700: 03/14 0700 03/13 1900 Intake Total 2200.00 Output Total Balance 2200.00 Intake, IV 1500.00 Intake, Oral 700 Number 0 Bowel Movements Number Voids 4 Patient 181 lb Weight Weight Bed scale Measurement Method Physical Exam General appearance: alert, awake, oriented, no acute distress Head/Eyes: atraumatic, clear cornea, normal conjunctiva/sclera, PERRL ENT: moist mucosal membranes, normal ear left, normal ear right Cardiovascular: normal heart sounds, regular rate rhythm Respiratory: aerating well, clear to auscultation, symmetric expansion Quality Current Medications Current medication review: I attest that the foregoing medication list in the medical record is true, accurate, and complete to the best of my knowledge. at 1908 RPT #:[id number] END OF REPORT [facility] 2020-03-14 07:35:00 [facility] Cardiology Progress Note REPORT#:[id number] REPORT STATUS: Signed DATE:03/14/20 TIME: 734 PATIENT: TIMMY LINARES UNIT #: [id number] ROOM/BED: [address] : 65 AGE: 55 SEX: M ATTEND: Donnell Rashid MD ADM AUTHOR: Ford Solomon MD * ALL edits or amendments must be made on the electronic/computer document * Subjective Chief Complaint: CAD Patient reports: No: chest pain, palpitations, shortness of breath. Objective General VS/I O: 24 hour I O ending at 0700: 03/14 0700 03/13 1900 Intake Total 2200.00 Output Total Balance 2200.00 Intake, IV 1500.00 Intake, Oral 700 Number 0 Bowel Movements Number Voids 4 Patient 82 kg Weight Weight Bed scale Measurement Method Vital Signs: Date Time Temp Pulse Resp B/P B/P Pulse O2 O2 Flow FiO2 Mean Ox Delivery Rate 03/14 719 98.1 88 18 136/79 98.0 99 03/14 0336 97.9 86 17 133/80 97.5 92 03/137 98.8 79 17 115/72 86.4 94 03/13 1938 97.9 80 17 126/75 92.0 96 03/13 1659 97.9 86 16 122/70 87.3 94 03/13 1334 98.8 87 16 147/86 106.6 95 Patient Weight Weight (lb): 180 Weight (oz): 12.46 Weight (kg): 82.000 Medications: Active Meds + DC'd Last 24 Hrs Potassium Chloride 20 MEQ NOW ONE PO (UNV) Atorvastatin Calcium 40 MG BEDTIME PO Acetaminophen 650 MG Q6H PRN PRN PO Melatonin 6 MG BEDTIME PRN PO Morphine Sulfate 2 MG Q4H PRN PRN IV Hydrocodone Bitart/Acetaminophen 0 .STK-MED ONE PO (DC) Nitroglycerin 1 INCH Q6H WA TRANSDERM Amlodipine Besylate 2.5 MG DAILY PO Aspirin 81 MG DAILY PO Clopidogrel Bisulfate 75 MG DAILY PO Losartan Potassium 100 MG DAILY PO Metoprolol Tartrate 50 MG DAILY PO Acetaminophen 650 MG ASDIR PRN PO (DC) Hydrocodone Bitart/Acetaminophen 1 TAB Q4H PRN PRN PO Nitroglycerin 0.4 MG Q5M PRN PRN SL Ondansetron HCl 4 MG Q8H PRN PRN IV Sodium Chloride 1,000 ML .Q10H IV Metoprolol Tartrate 0 .STK-MED ONE .ROUTE (DC) Nitroglycerin 0 .STK-MED ONE .ROUTE (DC) Nitroglycerin/Dextrose 250 ML .STK-MED ONE IV (DC) Clopidogrel Bisulfate 0 .STK-MED ONE .ROUTE (DC) Adenosine 0 .STK-MED ONE IV (DC) Sodium Chloride 50 ML .STK-MED ONE IV (DC) Sodium Chloride 1,000 ML ONCE ONE IV (DC) Physical Exam General appearance: alert, awake, oriented Head/Eyes: atraumatic, normocephalic ENT: moist mucosal membranes Neck: no JVD Cardiovascular: CV assessment: regular rate and rhythm Respiratory: clear to auscultation, no distress Lower extremity: LE assessment: no edema Musculoskeletal: full range of motion Neuro/SEAMING INSPECTOR: alert, oriented X 3, CN II-XII intact Skin: dry, intact Psychiatry: normal affect, normal judgment/insight, normal mood Results Findings/Data: Laboratory Tests 03/14 03/14 0325 0325 Chemistry Sodium (137 - 145 MMOL/L) 137 Potassium (3.5 - 5.1 MMOL/L) 3.6 Chloride (98 - 107 MMOL/L) 105 Carbon Dioxide (22 - 30 MMOL/L) 25 Anion Gap (14 - 24 MMOL/L) 11 L BUN (9 - 20 MG/DL) 13 Creatinine (0.66 - 1.25 MG/DL) 0.80 Glomerular Filtr Rate > 60 Glucose (74 - 106 MG/DL) 97 Calcium (8.4 - 10.2 MG/DL) 8.6 Triglycerides (MG/DL) 45 Cholesterol (<200 MG/DL) 130 LDL Cholesterol Measurd (0 - 99 MG/DL) 73 HDL Cholesterol (40 - 59 MG/DL) 50 Laboratory Tests 03/13 0809 Coagulation Activated Coag Time (74 - 137 SEC) 235 H Laboratory Tests 03/14 0325 Hematology WBC (3.8 - 9.8 K/MM3) 6.4 RBC (3.95 - 5.67 M/MM3) 4.50 Hgb (12.4 - 16.7 G/DL) 14.7 Hct (35.9 - 49.5 %) 44.6 MCV (81.7 - 96.1 fL) 99 H MCH (27.6 - 33.2 pg) 32.7 MCHC (32.9 - 35.5 %) 33.0 RDW (12.1 - 15.2 %) 12.7 Plt Count (129 - 368 K/MM3) 200 MPV (7.4 - 10.4 fl) 9.9 Neut % (Auto) (43 - 75 %) 61.2 Lymph % (Auto) (14 - 44 %) 23.1 [place] % (Auto) (4 - 13 %) 10.1 Eos % (Auto) (0 - 6 %) 3.9 Baso % (Auto) (0 - 2 %) 1.2 Neut # (Auto) (2.0 - 7.6 K/mm3) 3.93 Lymph # (Auto) (1.0 - 3.8 K/mm3) 1.48 [place] # (Auto) (0.1 - 0.8 K/mm3) 0.65 Eos # (Auto) (0.0 - 0.2 K/mm3) 0.25 H Baso # (Auto) (0.0 - 0.2 K/mm3) 0.08 Immature Gran % (0.0 - 2.0 %) 0.5 Nucleated RBC % (0 - 1.0 %) 0.0 Nucleated RBCs # (Man) (0.0 - 0.1 K/mm3) 0.00 Diagnosis, Assessment Plan Free Text DxA P Notes Free Text DxA P Notes: IMP: CAD s/p PTCA / stent PLAN: d/c home f/u one week. at 1008 RPT #:[id number] END OF REPORT [facility] 2020-03-14 05:32:00 [id number] [place] [id number] PATIENT NAME: TIMMY LINARES ADMIT DATE: 03/13/20 ACCOUNT NO: [id number] ROOM NO: [facility] AGE: 55 REPORT TYPE: ELECTROCARDIOGRAM SEX: M ADMITTING PHYSICIAN:Donnell Rashid MD ATTENDING PHYSICIAN:Donnell Rashid MD Order: [id number] Test Reason : CAD Test Date/Time Stamp: SunMar 14 2020 05:32:43 Blood Pressure : / mmHG Vent. Rate : 081 BPM Atrial Rate : 081 BPM P-R Int : 156 ms QRS Dur : 092 ms QT Int : 392 ms P-R-T Axes : 076 -13 062 degrees QTc Int : 455 ms Normal sinus rhythm Low voltage QRS ST abnormality, possible digitalis effect Abnormal ECG When compared with ECG of 13-MAR-2020 08:57, Questionable change in QRS axis Confirmed by MALI AMEZQUTIA ([id number]) on 03/14/2020 7:27:48 AM Referred By: Donnell Rashid Confirmed by:MALI AMEZQUITA at 0727 PATIENT NAME: TIMMY LINARES [facility] 2020-03-13 16:13:00 [facility] ([facility]) Hospitalist History Physical REPORT#:[id number] REPORT STATUS: Signed DATE:03/13/20 TIME: 1613 PATIENT: TIMMY LINARES UNIT #: [id number] ROOM/BED: [address] : [birth year] AGE: 55 SEX: M ATTEND: Donnell Rashid MD ADM AUTHOR: Donnell Rashid MD * ALL edits or amendments must be made on the electronic/computer document * History of Present Illness HPI Chief complaint: Chest pain. HPI: Patient is a 55-year-old male with known HTN, HLD , CAD, and carotid artery disease who had cardiac catheterization in January 2018 when he was noted to have 60% mid lesion in LAD. At the same time he was noted to have significant blockage of left internal carotid artery for which he underwent left carotid endarterectomy. For the coronary artery disease he was managed with medical treatment. Recently he started having exertional angina for which he saw his media theorist and author of Dr. Amezquita. He underwent diagnostic work-up including echocardiogram and nuclear medicine stress test; the stress test was noted to be abnormal with reversible ischemia as well as decreased ejection fraction. Cardiac catheterization was planned which was done this morning and it showed that the LAD lesion had increased to approximately 75%. He underwent angioplasty as well as stent placement of the lesion. He was also noted to have 20 to 50% lesions in other coronary arteries. He is now admitted to the telemetry unit for overnight observation. He is somnolent but arousable, and denies any complaint. Nurse indicates that he was given hydrocodone for pain in the Law [employer]ibrarian and he has been sleepy since then. History Past Medical Surgical Hx Patient History: 1. Coronary artery disease 2. Carotid artery disease 3. Hypertension 4. Hyperlipidemia 5. H/O foot surgery 6. H/O carotid endarterectomy 7. Smokes 11 to 20 cigarettes per day 8. Alcohol ingestion, 1-4 drinks per day 9. Not currently working due to disabled status 10. 11. Has 2 children Family History Additional family history: Father of Cirrhosis; mother of COPD. Medication/Allergy-Vaccine Hx Medications: Home Medications: ASPIRIN 81 MG PO DAILY CLOPIDOGREL (PLAVIX) 75 MG PO DAILY LOSARTAN (COZAAR) amLODIPine (NORVASC) 2.5 MG PO DAILY METOPROLOL TARTRATE (LOPRESSOR) 50 MG PO DAILY ATORVASTATIN (LIPITOR) 40 MG PO DAILY Allergies: Coded Allergies: No Known Allergies (12/08/16) Review of Systems Constitutional: Denies: chills, fatigue, fever, generalized weakness, recent wt loss. Respiratory: Denies: COLON (dyspnea on exertion), hemoptysis, non productive cough, pleuritic pain, productive cough (sputum), SOB, wheezing. Cardiovascular: Reports: chest pain. Denies: edema, orthopnea, palpitations, parox nocturnal dyspnea. All systems rev neg: except as noted Physical Exam VS/I O: Vital Signs: Date Time Temp Pulse Resp B/P B/P Pulse O2 O2 Flow FiO2 Mean Ox Delivery Rate 03/13 1334 98.8 87 16 147/86 106.6 95 Patient Weight and BMI Weight (lb): 180 Weight (oz): 12.46 Weight (kg): 82.000 BMI: 25.9 General appearance: no acute distress, somnolent but arousable Head/Eyes: atraumatic, clear cornea, normal conjunctiva/sclera, PERRL ENT: moist mucosal membranes, normal ear left, normal ear right Neck: non-tender, supple/no meningismus Cardiovascular: normal heart sounds, regular rate rhythm Respiratory: aerating well, clear to auscultation, symmetric expansion, no distress Abdomen: obese, non-tender, normal bowel sounds, soft, no distention, no guarding Extremities: moves all, no clubbing, no cyanosis, no edema Musculoskeletal: normal inspection, no muscle spasm Neuro/SEAMING INSPECTOR: oriented X 3, normal speech, no motor deficits Psychiatry: normal affect, normal judgment/insight, normal mood Results Findings/Data: Laboratory Tests: 03/13 03/13 03/13 0809 0615 0500 Chemistry Sodium (137 - 145 MMOL/L) 138 Potassium (3.5 - 5.1 MMOL/L) 3.9 Chloride (98 - 107 MMOL/L) 104 Carbon Dioxide (22 - 30 MMOL/L) 25 Anion Gap (14 - 24 MMOL/L) 13 L BUN (9 - 20 MG/DL) 13 Creatinine (0.66 - 1.25 MG/DL) 0.90 Glomerular Filtr Rate > 60 Glucose (74 - 106 MG/DL) 102 Calcium (8.4 - 10.2 MG/DL) 9.0 Magnesium (1.6 - 2.3 MG/DL) 1.9 Triglycerides (MG/DL) 48 Cholesterol (<200 MG/DL) 147 LDL Cholesterol Measurd (0 - 99 MG/DL) 78 HDL Cholesterol (40 - 59 MG/DL) 52 Coagulation INR 1.0 APTT (25.1 - 36.5 SECONDS) 28.4 PT Patient/Control Mix (9.4 - 12.5 SECONDS) 11.3 Activated Coag Time (74 - 137 SEC) 235 H Hematology WBC (3.8 - 9.8 K/MM3) 7.2 RBC (3.95 - 5.67 M/MM3) 4.69 Hgb (12.4 - 16.7 G/DL) 15.5 Hct (35.9 - 49.5 %) 45.0 MCV (81.7 - 96.1 fL) 96 MCH (27.6 - 33.2 pg) 33.0 MCHC (32.9 - 35.5 %) 34.4 RDW (12.1 - 15.2 %) 13.0 Plt Count (129 - 368 K/MM3) 219 MPV (7.4 - 10.4 fl) 9.4 Neut % (Auto) (43 - 75 %) 54.2 Lymph % (Auto) (14 - 44 %) 25.7 [place] % (Auto) (4 - 13 %) 13.6 H Eos % (Auto) (0 - 6 %) 4.6 Baso % (Auto) (0 - 2 %) 1.8 Neut # (Auto) (2.0 - 7.6 K/mm3) 3.87 Lymph # (Auto) (1.0 - 3.8 K/mm3) 1.84 [place] # (Auto) (0.1 - 0.8 K/mm3) 0.97 H Eos # (Auto) (0.0 - 0.2 K/mm3) 0.33 H Baso # (Auto) (0.0 - 0.2 K/mm3) 0.13 Immature Gran % (0.0 - 2.0 %) 0.1 Nucleated RBC % (0 - 1.0 %) 0.0 Nucleated RBCs # (Man) (0.0 - 0.1 K/mm3) 0.00 Serology SARS-CoV-2 Ag (Rapid) (Negative) NEGATIVE Results: labs reviewed, vital signs stable, rhythm personally rev'd, current med profile rev'd Diagnosis, Assessment Plan Problem List/A P: 1. Unstable angina 2. Coronary artery disease A P s/p PTCA/Stent placement in LAD. 3. Carotid artery disease 4. Hypertension 5. Hyperlipidemia 6. Tobacco dependence Free Text A P: - Admit for overnight observation. - Monitor on telemetry. - Resume home meds including ASA and Plavix. - IV fluids. - Repeat labs in am. - Anticipate d/c home in am if remains stable. Quality Current Medications Current medication review: I attest that the foregoing medication list in the medical record is true, accurate, and complete to the best of my knowledge. at 1630 RPT #:[id number] END OF REPORT [facility] 2020-03-13 08:57:00 [id number] [place] [id number] PATIENT NAME: TIMMY LINARES ADMIT DATE: 03/13/20 ACCOUNT NO: [id number] ROOM NO: Z.DC5 AGE: 55 REPORT TYPE: ELECTROCARDIOGRAM SEX: M ADMITTING PHYSICIAN:Migel Mckeon MD ATTENDING PHYSICIAN:Migel Mckeon MD Order: [id number] Test Reason : CAD/PCI Test Date/Time Stamp: SunMar 13 2020 08:57:22 Blood Pressure : / mmHG Vent. Rate : 077 BPM Atrial Rate : 077 BPM P-R Int : 166 ms QRS Dur : 086 ms QT Int : 404 ms P-R-T Axes : 063 071 059 degrees QTc Int : 457 ms Normal sinus rhythm Low voltage QRS Cannot rule out Anterior infarct (cited on or before 13-MAR-2020) Abnormal ECG When compared with ECG of 13-MAR-2020 06:33, No significant change was found Confirmed by MALI AMEZQUITA ([id number]) on 03/13/2020 10:04:57 AM Referred By: Mali Amezquita Confirmed by:MALI AMEZQUITA at 1005 PATIENT NAME: TIMMY LINARES [facility] 2020-03-13 08:40:00 [id number] [address] PATIENT NAME: TIMMY LINARES ADMIT DATE: 03/13/20 ACCOUNT NO: [id number] ROOM NO: Z.DC5 AGE: 55 REPORT TYPE: CARDIAC CATHETERIZATION REPORT SEX: M ADMITTING PHYSICIAN:Migel Mckeon MD ATTENDING PHYSICIAN:Migel Mckeon MD PROCEDURE DATE: 03/13/2020 CLIN TECH: Mali Amezquita M.D. INDICATION FOR THE PROCEDURE: Angina, coronary artery disease, and abnormal nuclear stress test. TITLE OF THE PROCEDURE: 1. Left heart catheterization. 2. FFR. 3. Drug-eluting stent of the LAD. 4. Nitroglycerin intracoronary. 5. Sealing device. ESTIMATED BLOOD LOSS: Minimal. COMPLICATIONS: None. CONTRAST: 120 mL. ANESTHESIA: Conscious sedation with Versed and fentanyl and 1% lidocaine for local anesthesia. FINAL DIAGNOSES: Single-vessel coronary artery disease, status post drug-eluting stent of the LAD and PCI of the diagonal. Recommendation is medical therapy, observation overnight. PROCEDURE IN DETAIL: After informed consent, the patient was brought to the cardiac catheterization lab in a stable fasting nonsedated state. He was prepped and draped in the usual sterile fashion. After conscious sedation, 1% lidocaine was administered to the right common femoral artery area for local anesthesia. A 6-Slovak sheath was placed in the right common femoral artery using standard techniques and fluoroscopy. After heparinization, left coronary angiogram showed calcified left system. The LAD had an eccentric focal lesion, 75% right after the takeoff of the large diagonal. There was a 50% distal plaquing. This lesion I called at 60% two years ago. Circumflex had 20% at the ostium and then 35% to 20% in the obtuse marginal. Right coronary angiogram was dominant with 35% long plaque proximal to mid. Left ventricular angiogram showed ejection fraction of 60%, left ventricular end-diastolic pressure of 18 and no wall motion abnormalities or aortic valve gradient. So the LAD lesion is the main focus, it is eccentric. It is right at the origin of a significant diagonal. I called it at 60% two years ago. The patient has been having more PATIENT NAME: TIMMY LINARES angina at this time and the stress test was abnormal, so I did iFR, it was 0.9 using the [place] Verrata plus pressure guidewire and then I did FFR, it was 0.76, which is significant. At the lesion, it was an Cooper vascular Xience Margarita 3.25 x 12 deployed at 18 atmospheres if needed that much pressure because of the calcification of the lesion and the eccentricity. The guide used by the way was an XB 3.5. This resulted in 0% residual and good flow down the LAD. There was a pinch at the ostium of the diagonal from plaque shift, so I went back with loose wire to the diagonal and dilated the ostium with a [employer] Emerge 2 x 8 and that took care of the lesion and it is now 0%. I did use nitroglycerin before several times, but did not help the diagonal lesion. The right groin was sealed using Angio-Seal. There were no complications. The patient tolerated the procedure well. He will be observed overnight and risk factor modification will be continued. Dictated By: Mali Amezquita MD WT: CATH:TELMA/TEDDY/MERT Conf#: [id number]/DID#: [id number] Authenticated by Mali Amezquita MD On 03/13/2020 10:06:17 AM at 1006 PATIENT NAME: TIMMY LINARES [facility] 2020-03-13 06:33:00 [id number] [place] [id number] PATIENT NAME: TIMMY LINARES ADMIT DATE: 03/13/20 ACCOUNT NO: [id number] ROOM NO: AGE: 55 REPORT TYPE: ELECTROCARDIOGRAM SEX: M ADMITTING PHYSICIAN: ATTENDING PHYSICIAN:Mali Amezquita MD Order: [id number] Test Reason : PREOP Test Date/Time Stamp: SunMar 13 2020 06:33:22 Blood Pressure : / mmHG Vent. Rate : 084 BPM Atrial Rate : 084 BPM P-R Int : 160 ms QRS Dur : 080 ms QT Int : 394 ms P-R-T Axes : 059 056 059 degrees QTc Int : 465 ms Normal sinus rhythm Low voltage QRS Cannot rule out Anterior infarct , age undetermined Abnormal ECG No previous ECGs available Confirmed by MALI AMEZQUITA ([id number]) on 03/13/2020 7:13:07 AM Referred By: Mali Amezquita Confirmed by:MALI AMEZQUITA at 0713 PATIENT NAME: TIMMY LINARES [facility] 2020-03-12 07:45:00 [id number] [place] [address] PATIENT NAME: TIMMY LINARES ADMIT DATE: ACCOUNT NO: [id number] ROOM NO: AGE: 55 REPORT TYPE: PREOP HISTORY AND PHYSICAL SEX: M ADMITTING PHYSICIAN: ATTENDING PHYSICIAN:Mali Amezquita MD PATIENT NAME: TIMMY LINARES ADMIT DATE:03/13/2020 ADMISSION DATE: 03/13/2020 CLIN TECH: Mali Amezquita MD REASON FOR ADMISSION: Left heart catheterization and possible revascularization for symptoms of angina; and abnormal nuclear stress test. HISTORY OF PRESENT ILLNESS: Doe is a 55-year-old patient with known coronary artery disease and carotid disease. He has had cardiac and carotid angiograms at [facility] on 02/16/2018. At that time, his LAD had a 60% mid lesion and he was treated medically for his coronary artery disease. He underwent left carotid endarterectomy for significant carotid disease. The patient was in his usual state of health until recently when he started having worsening symptoms of what sounds like angina. He has been on and off noncompliance with his medications and the patient continues to smoke. He had a carotid Doppler, which showed stable carotid disease. He had an echocardiogram, which showed a normal ejection fraction, no significant valvular insufficiency. He does have hypertensive changes. Nuclear stress test was carried out that showed the ejection fraction to be 45% at this time compared to 65% before with evidence of RCA ischemia, which is changed from previous evaluation. Also, on the Holter monitor, he had a 4-beat ventricular tachycardia run and few short supraventricular tachycardia runs. Given this information and the patient's history, he is here for cardiac catheterization to assess for further revascularization. PAST MEDICAL HISTORY: Remarkable for hypertension, carotid disease, hyperlipidemia, and anxiety. PAST SURGICAL HISTORY: He has had the carotid surgery in February 2018 and ankle surgery. ALLERGIES: NO KNOWN DRUG ALLERGIES. MEDICATIONS: Include aspirin 81 mg daily, Plavix 75 mg daily, losartan 100 mg daily, amlodipine 2.5 mg daily, metoprolol 50 mg daily, atorvastatin 40 mg daily. SOCIAL HISTORY: The patient continues to smoke. He does use cigar occasionally. There is no history of alcohol or street drug use. FAMILY HISTORY: Positive for atherosclerotic cardiovascular disease. PATIENT NAME: TIMMY LINARES REVIEW OF SYSTEMS: Enclosed, it is remarkable for dry mouth, mouth breathing at night, weakness, dizziness, cough, wheezing at times, decreased appetite, easy bruisability. No acute GI or symptoms. No TIAs or strokes. PHYSICAL EXAMINATION: GENERAL: Reveals a pleasant middle-aged male, in no acute distress. VITAL SIGNS: Blood pressure 130/89, pulse 80 and regular, respiratory rate 18 and unlabored, and temperature afebrile. HEENT: Head atraumatic and normocephalic. Eyes and ENT examination within normal for age. He does have missing teeth. NECK: Supple. No jugular venous distention, bruits, or lymphadenopathy. Normal upstroke. The left carotid endarterectomy site is stable. LUNGS: Clear and resonant. Decreased air entry at the bases. HEART: Regular rate and rhythm with I/ systolic ejection murmur at the left lower sternal border. No gallops. ABDOMEN: Soft. No tenderness, no organomegaly, no masses or bruits. EXTREMITIES: A 1+ distal pulses. No edema, cyanosis, or clubbing. NEUROLOGIC: Alert and oriented x3. The examination appears to be nonfocal. LABORATORY DATA: Pending. Noninvasive cardiovascular workup enclosed. IMPRESSION: This is a 55-year-old patient with known coronary artery disease, who now has worsening angina, worsening ischemia on a nuclear stress test with depressed ejection fraction. He appears to have progression of his coronary artery disease, and he is here for cardiac catheterization to assess for possible revascularization. The recommendation is to proceed with left heart catheterization and possible revascularization. The risks and benefits of the planned procedures were discussed in detail with the patient and he is willing to proceed. Dictated By: Mali Amezquita MD WT: PREOPHP:RIDDHI/TEDDY/MERT Conf#: [id number]/DID#: [id number] Authenticated and Edited by Mali Amezquita MD On 03/12/20 4:33:46 PM at 1635 PATIENT NAME: TIMMY LINARES [facility]CA[facility]U
[2024-02-29 14:57] LABS: Absolute Basophils 0.3 K/uL (0-0.5); Absolute Eosinophils 0.4 K/uL (0-0.5); Absolute Monocytes 0.9 K/uL (0.1-1.3); Absolute Neutrophil 4.3 K/uL (1.8-8.0); Basophils % 2.9 % (0-1.3); Hemoglobin 14.5 g/dL (13.6-17.9); Lymphocytes % 33.8 % (15.3-44.8); MCHC 35.3 g/dL (32.0-36.0); MCV 93.5 fL (80-100); MPV 7.8 fL (7.6-11.3); Monocytes % 10.3 % (3.3-12.3); Nucleated Red Blood Cells % 0.1 % (0-0); Platelets 279 thou/uL (152-406); RBC Red Blood Cell Count 4.38 M/uL (4.33-5.43); Red Cell Distribution Width 12.9 % (12.1-15.2)
[2024-02-29] MEDS ORDERED: NITROGLYCERIN 0.4 MG/TAB SL ONE (15:02)
[2024-02-29] MEDS ORDERED: ONDANSETRON 4 MG/2 ML VIAL ONE (15:02)
[2024-02-29 15:04] LABS: Anion Gap 11.7 mEq/L (5.0-15.0); Potassium 3.7 mEq/L (3.5-5.1); Troponin High Sensitivity 5.6 pg/mL (<58.9)
--- NOTE | 2024-02-29 15:45 | RAD REPORT ---
Procedure: Chest Single View HISTORY: Chest pain COMPARISON: 2019 FINDINGS: The lungs appear clear of acute infiltrate. Lungs are hyperaerated. No significant pleural effusion noted. The heart is normal size. IMPRESSION: No acute abnormality is displayed.
[2024-02-29 17:35] LABS: Albumin 3.3 g/dL (3.4-5.0); Albumin/Globulin Ratio 0.8 (1.1-1.8); Bilirubin Direct 0.3 mg/dL (0-0.2); Bilirubin Indirect, Calculated 0.6 mg/dL (0.2-0.8); Bilirubin Total 0.9 mg/dL (0.2-1.0); Globulin 4.2 g/dL (2.3-3.5); Protein, Total 7.5 g/dL (6.4-8.2)
--- NOTE | 2024-02-29 19:08 | EDPHYS ---
Physician Documentation [facility] Name: Chong Ocampo Age: 59 yrs Sex: Male : 1965 Arrival Date: 02/29/2024 Time: 14:22 Bed 13 Private MD: ED Physician Riley Sherman HPI: 02/28 16:16 This 59 yrs old Male presents to ER via Wheelchair with complaints of Chest Pain. rt 16:16 Patient had an acute onset of chest pain, shortness of breath it was nonexertional less rt than 1 hour prior to arrival. Patient states that symptoms have improved but not resolved. Patient states that he took BC powder earlier today for headache. Denies other acute complaints at this time, symptoms are moderate in severity, no other aggravating or alleviating factors.. Historical: - Allergies: 14:24 Codeine; iw - PMHx: 14:24 COPD; CVA; Hepatitis; Hypertension; Myocardial infarction; High Cholesterol; iw Pancreatitis; Pneumonia; - PSHx: 14:24 heart stent; carotid stents; Stented artery; iw - Immunization history:: Adult Immunizations unknown. - Infectious Disease History:: Denies. - Family history:: not pertinent. - Social history:: Smoking status: Patient reports the use of cigarette tobacco products, smokes one pack cigarettes per day. ROS: 16:16 Constitutional: Negative for fever, chills, and weight loss, Abdomen/GI: Negative for rt abdominal pain, nausea, vomiting, diarrhea, and constipation, MS/Extremity: Negative for injury and deformity, Skin: Negative for injury, rash, and discoloration, Neuro: Negative for headache, weakness, numbness, tingling, and seizure, 16:16 Cardiovascular: Positive for chest pain, Negative for edema, 16:16 Respiratory: Positive for cough, Negative for dyspnea on exertion, Exam: 16:16 Constitutional: This is a well developed, well nourished patient who is awake, alert, rt and in no acute distress. Head/Face: Normocephalic, atraumatic. Chest/axilla: Normal chest wall appearance and motion. Nontender with no deformity. No lesions are appreciated. Cardiovascular: Regular rate and rhythm with a normal S1 and S2. No gallops, murmurs, or rubs. Normal PMI, no JVD. No pulse deficits. Respiratory: Lungs have equal breath sounds bilaterally, clear to auscultation and percussion. No rales, rhonchi or wheezes noted. No increased work of breathing, no retractions or nasal flaring. Abdomen/GI: Soft, non-tender, with normal bowel sounds. No distension or tympany. No guarding or rebound. No evidence of tenderness throughout. Skin: Warm, dry with normal turgor. Normal color with no rashes, no lesions, and no evidence of cellulitis. MS/ Extremity: Pulses equal, no cyanosis. Neurovascular intact. Full, normal range of motion. Neuro: Awake and alert, GCS 15, oriented to person, place, time, and situation. Cranial nerves II-XII grossly intact. Motor strength 5/5 in all extremities. Sensory grossly intact. Cerebellar exam normal. Normal gait. 16:16 ECG was reviewed by the Attending Physician. Vital Signs: 14:23 BP 109 / 68; Pulse 88; Resp 18 S; Temp 97.2(TE); Pulse Ox 96% on R/A; aa5 15:00 BP 108 / 62; Pulse 82; Resp 16; Pulse Ox 92% on R/A; db 15:45 BP 110 / 71; Pulse 76; Resp 16; Pulse Ox 95% on 2 lpm NC; db 16:30 BP 113 / 75; Pulse 78; Resp 16; Pulse Ox 94% ; db 17:15 BP 100 / 56; Pulse 81; Resp 14; Pulse Ox 94% ; db 18:07 BP 107 / 67; Pulse 90; Resp 16; Pulse Ox 96% on 2 lpm NC; db 19:15 BP 128 / 74; Pulse 85; Resp 16; Temp 98.2; Pulse Ox 98% ; dd2 21:35 Weight 91.17 kg; Height 5 ft. 9 in. ; dd2 21:35 Body Mass Index 29.68 (91.17 kg, 175.26 cm) dd2 15:00 PATIENT PLACED ON 2 L NC O2. db MDM: 14:25 Medical Screening Exam initiated rt 19:37 Differential diagnosis: CAD, ACS, pneumonia. Data reviewed: vital signs, nurses notes, rt lab test result(s), EKG, radiologic studies. Consideration of Admission/Observation Patient was admitted/placed on observation. Management of patient was discussed with the following: Hospitalist: Agrees to admit. I considered the following discharge prescriptions or medication management in the emergency department Medications were administered in the Emergency Department. See MAR. Independent interpretation of the following test(s) in the Emergency Department X-Ray: My interpretation is No infiltrate seen on interpretation of x-ray images. Care significantly affected by the following chronic conditions: Hypertension. Counseling: I had a detailed discussion with the patient and/or guardian regarding the historical points, exam findings, and any diagnostic results supporting the discharge/admit diagnosis, lab results, radiology results, the need for further work-up and treatment in the hospital. Response to treatment: the patient's symptoms have markedly improved after treatment. 02/28 14:24 Order name: Basic Metabolic Panel; Complete Time: 15:47 iw 02/28 14:24 Order name: CBC with Diff; Complete Time: 15:47 iw 02/28 14:24 Order name: Troponin HS; Complete Time: 15:47 iw 02/28 14:31 Order name: LFT's; Complete Time: 17:37 rt 02/28 14:31 Order name: BNP; Complete Time: 17:37 rt 02/28 19:38 Order name: Lipid Profile [facility] 02/28 19:38 Order name: Lipid Profile [facility] 02/28 19:38 Order name: Troponin High Sensitivity [facility] 02/28 19:38 Order name: Troponin High Sensitivity [facility] 02/28 19:38 Order name: Troponin High Sensitivity [facility] 02/28 19:38 Order name: Troponin High Sensitivity [facility] 03/01 06:22 Order name: Basic Metabolic Panel [facility] 02/28 14:24 Order name: XRAY Chest (1 view); Complete Time: 15:47 02/28 19:38 Order name: Echo with Doppler [facility] 02/28 14:24 Order name: EKG; Complete Time: 14:25 iw 02/28 19:38 Order name: CONS Physician Consult [facility] 02/28 14:24 Order name: Cardiac monitoring; Complete Time: 17:08 iw 02/28 14:24 Order name: EKG - Nurse/Tech; Complete Time: 14:35 iw 02/28 14:24 Order name: IV Saline Lock; Complete Time: 14:35 iw 02/28 14:24 Order name: Labs collected and sent; Complete Time: 14:35 iw 02/28 14:24 Order name: O2 Per Protocol; Complete Time: 17:08 iw 02/28 14:24 Order name: O2 Sat Monitoring; Complete Time: : iw EC:16 Rate is 92 beats/min. Rhythm is regular, Normal Sinus Rhythm with No ectopy. QRS Holland rt is Normal. ME interval is normal. QRS interval is normal. QT interval is normal. No Q waves. T waves are Normal. No ST changes noted. Interpreted by me. Administered Medications: 15:12 Drug: Ondansetron IVP 4 mg IVP once; over 2 minutes Route: IVP; Site: right antecubital;db 18:57 Follow up: Response: No adverse reaction db 17:08 Not Given (Physician Discretion): nitroglycerin0.4 mg Sublingual once; every five db minute if needed x3 19:25 Drug: NS 0.9% IV 1000 ml IV at 1 bolus Per protocol; to be given as a bolus over 60 dd2 minutes Route: IV; Rate: 1 bolus; Site: left forearm; 19:40 Follow up: Response: No adverse reaction dd2 20:19 Follow up: IV Status: Completed infusion; IV Intake: 1000ml dd2 Disposition Summary: 02/29/24 19:07 Hospitalization Ordered Notes: Hospitalization Status: Observation rt Provider: Prince Hailey rt Condition: Stable rt Problem: new rt Symptoms: have improved rt Bed/Room Type: Standard rt Location: Telemetry/MedSurg (observation)(03/01/24 07:32) eb Room Assignment: 209(03/01/24 07:32) eb Diagnosis - Chest pain, unspecified rt - Acute kidney injury rt Forms: - Medication Reconciliation Form rt - SBAR form rt - Leadership Thank You Letter rt Signatures: Dispatcher [employer] Kendra Pearl RN RN iw Chapis Alcaraz Danielle, RN RN db Riley Sherman MD MD rt Sandhya Felix rv1 ODELL KO RN RN dd2 Corrections: (The following items were deleted from the chart) 18:57 15:00 Social history: Smoking status: Patient denies any tobacco usage or history of. dbdb 20:01 19:07 Telemetry/MedSurg (observation) rt rv1 20:01 19:07 rt rv1 20:01 20:01 rv1 rv1 11/02/28 20:01 [facility] [place] ER HOLD rv1 eb 03/01 20:01 ERHOLD- rv1 eb
--- NOTE | 2024-02-29 19:08 | ER ---
Nurse's Notes [facility] Name: Chong Ocampo Age: 59 yrs Sex: Male : 1965 Arrival Date: 02/29/2024 Time: 14:22 Bed 13 Private MD: Diagnosis: Chest pain, unspecified;Acute kidney injury Presentation: 02/28 14:23 Chief complaint: Patient states: SOB about 45 minutes ago, has cardiac problems. iw Coronavirus screen: At this time, the client does not indicate any symptoms associated with coronavirus-19. Initial Sepsis Screen: Does the patient meet any 2 criteria? No. Patient's initial sepsis screen is negative. Does the patient have a suspected source of infection? No. Patient's initial sepsis screen is negative. Onset of symptoms was February 29, 2024. 14:23 Method Of Arrival: Wheelchair iw 14:23 Acuity: FILI 2 iw 14:23 Ebola Screen: Patient denies travel to an Ebola-affected area in the 21 days before aa5 illness onset. Risk Assessment: Do you want to hurt yourself or someone else? Patient reports no desire to harm self or others. Historical: - Allergies: 14:24 Codeine; iw - PMHx: 14:24 COPD; CVA; Hepatitis; Hypertension; Myocardial infarction; High Cholesterol; iw Pancreatitis; Pneumonia; - PSHx: 14:24 heart stent; carotid stents; Stented artery; iw - Immunization history:: Adult Immunizations unknown. - Infectious Disease History:: Denies. - Family history:: not pertinent. - Social history:: Smoking status: Patient reports the use of cigarette tobacco products, smokes one pack cigarettes per day. Screenin:00 [facility] ED Fall Risk Assessment (Adult) History of falling in the last 3 months, db including since admission No falls in past 3 months (0 pts) Confusion or Disorientation No (0 pts) Intoxicated or Sedated No (0 pts) Impaired Gait No (0 pts) Mobility Assist Device Used No (0 pt) Altered Elimination No (0 pt) Score/Fall Risk Level 0 - 2 = Low Risk Oriented to surroundings, Maintained a safe environment. Abuse screen: Denies threats or abuse. Denies injuries from another. Nutritional screening: No deficits noted. Tuberculosis screening: No symptoms or risk factors identified. Assessment: 14:58 Reassessment: NITROGLYCERIN HELD DUE TO PT BP PER DR. MANUEL. db 15:00 Reassessment: Patient appears in no apparent distress at this time. Patient and/or db family updated on plan of care and expected duration. Pain level reassessed. Patient is alert, oriented x 3, equal unlabored respirations, skin warm/dry/pink. General: Appears in no apparent distress. comfortable, Behavior is calm, cooperative. Pain: Complains of pain in chest Pain does not radiate. Pain began suddenly. Neuro: Level of Consciousness is awake, alert, obeys commands, Oriented to person, place, time, situation. Cardiovascular: Reports chest pain, shortness of breath, Capillary refill < 3 seconds Patient's skin is warm and dry. Respiratory: Airway is patent Respiratory effort is even, unlabored, Respiratory pattern is regular, symmetrical. 16:07 Reassessment: Patient appears in no apparent distress at this time. Patient and/or db family updated on plan of care and expected duration. Pain level reassessed. Patient is alert, oriented x 3, equal unlabored respirations, skin warm/dry/pink. 17:31 Reassessment: Patient appears in no apparent distress at this time. Patient and/or db family updated on plan of care and expected duration. Pain level reassessed. Patient is alert, oriented x 3, equal unlabored respirations, skin warm/dry/pink. Patient states feeling better. Patient states symptoms have improved. 18:30 Reassessment: Patient appears in no apparent distress at this time. Patient and/or db family updated on plan of care and expected duration. Pain level reassessed. Patient is alert, oriented x 3, equal unlabored respirations, skin warm/dry/pink. General: Appears in no apparent distress. comfortable, Behavior is calm, cooperative, appropriate for age. Neuro: Level of Consciousness is awake, alert, obeys commands, Oriented to person, place, time, situation. Respiratory: Airway is patent Respiratory effort is even, unlabored, Respiratory pattern is regular, symmetrical. 20:18 Reassessment: Patient appears in no apparent distress at this time. Patient and/or dd2 family updated on plan of care and expected duration. Pain level reassessed. Patient is alert, oriented x 3, equal unlabored respirations, skin warm/dry/pink. Patient denies pain at this time. 03/01 07:27 Reassessment: SEE [employer] FOR CONTINUED PATIENT CHARTING. db Vital Signs: 02/28 14:23 BP 109 / 68; Pulse 88; Resp 18 S; Temp 97.2(TE); Pulse Ox 96% on R/A; aa5 15:00 BP 108 / 62; Pulse 82; Resp 16; Pulse Ox 92% on R/A; db 15:45 BP 110 / 71; Pulse 76; Resp 16; Pulse Ox 95% on 2 lpm NC; db 16:30 BP 113 / 75; Pulse 78; Resp 16; Pulse Ox 94% ; db 17:15 BP 100 / 56; Pulse 81; Resp 14; Pulse Ox 94% ; db 18:07 BP 107 / 67; Pulse 90; Resp 16; Pulse Ox 96% on 2 lpm NC; db 19:15 BP 128 / 74; Pulse 85; Resp 16; Temp 98.2; Pulse Ox 98% ; dd2 21:35 Weight 91.17 kg; Height 5 ft. 9 in. ; dd2 21:35 Body Mass Index 29.68 (91.17 kg, 175.26 cm) dd2 15:00 PATIENT PLACED ON 2 L NC O2. db ED Course: 14:22 Patient arrived in ED. iw 14:24 Triage completed. iw 14:24 Arm band placed on. iw 14:25 Riley Manuel MD is Attending Physician. rt 14:33 Initial lab(s) drawn, by me, sent to lab. Inserted saline lock: 20 gauge in left aa5 forearm, using aseptic technique. Blood collected. Flushed with 10 mL NS. 15:19 Zee Beckman, RN is Primary Nurse. db 15:39 XRAY Chest (1 view) In Process Unspecified. EDMS 18:30 Patient has correct armband on for positive identification. Bed in low position. Call db light in reach. Side rails up X 1. Client placed on continuous cardiac and pulse oximetry monitoring. NIBP monitoring applied. panel monitor on. Pulse ox on. NIBP on. Pillow given. 19:06 Prince Hart MD is Hospitalizing Provider. rt 19:15 ODELL KO, RN is Primary Nurse. dd2 03/01 07:26 Provided Education on: ADMISSION. db 07:26 No provider procedures requiring assistance completed. Patient admitted, IV remains in db place. Oxygen administration via nasal cannula \T\ 2L/min. Administered Medications: 02/28 15:12 Drug: Ondansetron IVP 4 mg IVP once; over 2 minutes Route: IVP; Site: right antecubital;db 18:57 Follow up: Response: No adverse reaction db 17:08 Not Given (Physician Discretion): nitroglycerin0.4 mg Sublingual once; every five db minute if needed x3 19:25 Drug: NS 0.9% IV 1000 ml IV at 1 bolus Per protocol; to be given as a bolus over 60 dd2 minutes Route: IV; Rate: 1 bolus; Site: left forearm; 19:40 Follow up: Response: No adverse reaction dd2 20:19 Follow up: IV Status: Completed infusion; IV Intake: 1000ml dd2 Medication: 15:00 VIS not applicable for this client. db Intake: 20:19 IV: 1000ml; Total: 1000ml. dd2 Outcome: 19:07 Decision to Hospitalize by Provider. rt 03/01 07:26 Admitted to ER Hold. Please see [facility] for further documentation. db Condition: stable Instructed on the need for admit, 08:29 Patient left the ED. db Signatures: Dispatcher [employer] EDKendra Aguilera RN RN iw Katheryn Valentine RN RN aa5 Zee Beckman RN RN db Riley Manuel MD MD rt ODELL KO RN RN dd2 Corrections: (The following items were deleted from the chart) 02/28 14:36 14:23 Pulse 88bpm; Resp 18bpm; Spontaneous; Pulse Ox 96% RA; Temp 97.2F Temporal; aa5 aa5 18:57 15:00 Social history: Smoking status: Patient denies any tobacco usage or history of. dbdb
[2024-02-29] MEDS ORDERED: NA CHLORIDE 0.9% 1,000 ML ONE ×2 (19:19→20:38)
[2024-02-29] MEDS ORDERED: NITROGLYCERIN 0.4 MG/TAB SL PRN (19:33)
--- NOTE | 2024-02-29 19:44 | P.HP ---
Certification for Inpatient Patient admitted to: Observation With expected LOS: <2 Midnights Practitioner: I am a practitioner with admitting privileges, knowledge of patient current condition, hospital course, and medical plan of care. Services: Services provided to patient in accordance with Admission requirements found in Title 42 Section 412.3 of the Code of Federal Regulations Patient History Date of Service: 02/29/24 Reason for admission: chest pain History of Present Illness: Patient is a 59-year-old male with a past medical history of coronary disease status post PCI, core carotid artery stenosis status post CEA in the past and peripheral artery disease. Present to the ER accompanied by complaining of acute onset of chest pain. Patient was driving when his symptoms recurred. He will usually take nitroglycerin at home but as he was on the road this time, he was unable to do so. In the meantime, his chest pain persists. He is describing a substernal chest pain that is nonradiating. He arrived in the ER alert and awake. His initial EKG is normal. His high-sensitivity troponin is also normal at 5.6. Patient has a mildly elevated BNP at 240, and creatinine of 2.43. He is being admitted for ACS rule out. Allergies codeine Allergy (Verified 01/31/17 00:19) Itching Home Medications: Albuterol Sulfate [Proair Hfa] 8.5 gm IH QID PRN #1 hfa.aer.ad 01/18/16 Fluticasone/Salmeterol [Advair 250/50 Diskus*] 1 puff IH BID #1 disk 01/18/16 Pantoprazole [Protonix Tab*] 40 mg PO DAILYAC #30 tab 01/18/16 Aspirin [Aspirin EC 81 MG] 81 mg PO DAILY 01/30/16 Hydrocort Acetate Suppos [Anucort-Hc Suppository*] 25 mg WA DAILY #7 supp 02/01/16 Metoprolol Tartrate [Lopressor*] 50 mg PO BID 6AM 6PM #60 tab 01/31/17 Pramoxine HCl/Mineral Oil/Znox [Anusol Ointment] 30 gm RC BID #1 oint...g. 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 - Family History Mother -: Lung disease Father Notes: Alcoholism - Social History Alcohol use: Yes CD- Drugs: No Caffeine use: Yes Physical Examination - Physical Exam General: Other (Slightly diaphoretic) HEENT: Atraumatic, Normocephalic Respiratory: Clear to auscultation bilaterally, Normal air movement Cardiovascular: No edema, Normal pulses, Regular rate/rhythm, Normal S1 S2 Neurological: Normal speech - Studies Laboratory Data (last 24 hrs) 02/29/24 02/29/24 02/29/24 14:33 14:33 14:33 WBC 8.90 Hgb 14.5 Hct 41.0 Plt Count 279 Sodium 141 Potassium 3.7 BUN 30 H Creatinine 2.15 H Glucose 100 Total Bilirubin 0.9 AST 51 H ALT 40 Alkaline Phosphatase 79 Assessment and Plan - Problems (Diagnosis) (1) COPD (chronic obstructive pulmonary disease) Onset Date: 01/31/16 Current Visit: No Status: Acute Qualifiers: COPD type: unspecified COPD Qualified Code(s): J44.9 - Chronic obstructive pulmonary disease, unspecified (2) Chest pain Onset Date: 01/17/16 Current Visit: No Status: Acute Qualifiers: (3) GERD (gastroesophageal reflux disease) Current Visit: No Status: Acute (4) Smoking Onset Date: 01/31/16 Current Visit: No Status: Acute (5) Hyperlipidemia Onset Date: 01/31/16 Current Visit: No Status: Chronic Qualifiers: Hyperlipidemia type: unspecified Qualified Code(s): E78.5 - Hyperlipidemia, unspecified (6) Hypertension Onset Date: 01/31/16 Current Visit: No Status: Chronic (7) Tobacco abuse Onset Date: 01/31/17 Current Visit: No Status: Chronic - Plan Assessment Patient is a 59-year-old male with extensive cardiovascular history who is being admitted for an acute onset of chest pain. His initial troponin and EKG are normal. Chest pain Coronary disease status post PCI Carotid artery stenosis status post CEA Peripheral artery disease ALEJANDRO Tobacco smoking COPD Plan: Admit under observation with telemetry Will trend troponins Will obtain a 2D echo and lipid panel Continue daily aspirin Patient will benefit from a cardiology consult. Cardiology has been consulted Normal saline infusion for ALEJANDRO Repeat BMP tomorrow Resume rest of home medication upon reconciliation - Advance Directives Does patient have a Living Will: No Does patient have a Durable POA for Healthcare: No
[2024-02-29] MEDS: NA CHLORIDE 0.9% 1,000 ML IV SCH (20:00)
[2024-02-29 21:36] VITALS: BMI 29.7
[2024-02-29 23:38] LABS: Troponin High Sensitivity 5.9 pg/mL (<58.9)
[2024-03-01 04:21] VITALS: TEMP 97.8
[2024-03-01 06:14] LABS: Anion Gap 6.8 mEq/L (5.0-15.0); Potassium 3.8 mEq/L (3.5-5.1)
[2024-03-01 08:43] VITALS: O2SAT 98
[2024-03-01] MEDS: ENOXAPARIN 40 MG/0.4 ML SQ SCH (09:07)
[2024-03-01] MEDS: ASPIRIN EC 81 MG TAB PO SCH (09:07)
[2024-03-01 09:51] VITALS: BP 121/72
--- NOTE | 2024-03-01 10:19 | P.PN ---
Date of Service: 03/01/24 Subjective: reports dealing with some reflux/heartburn past few days that worsened yesterday heartburn improved today breathing okay on room air no new / worsening issues overnight ROS: 10 point ROS as noted above, otherwise negative Physical Exam: GEN: Alert, oriented, NAD HEENT: Normal conjunctiva, sclera anicteric, CV: Regular rate and rhythm, no edema Pulm: Nonlabored respirations on room air, clear bilaterally ABD: soft, nontender, nondistended Integumentary: No rashes Neuro: Normal speech, normal affect Problem List: Chest discomfort CAD s/p PCI Carotid artery stenosis s/p CEA Hx PAD ALEJANDRO Hypertension Hyperlipidemia COPD, chronic tobacco dependance Hx sessile polyps Chest discomfort CAD s/p PCI Carotid artery stenosis s/p CEA Hx PAD on admission, presents with chest pain worsening with movement/activity. Also reports some intermittent reflux/heartburn associated with some nausea/vomiting past few days Denies dealing with reflux symptoms prior to this episode felt pepcid helped at home denies daily NSAID use chest/abdominal discomfort possibly secondary to GERD/reflux/heartburn start Protonix, carafate troponins negative x3 Monitor on telemetry echo ordered to eval EF / stenosis check EKG Cardiology consulted continue asa 81 mg PRN nitro ALEJANDRO creatinine 2.15 on admission continue to monitor renal function ALEJANDRO likely related to dehydration / vomiting continue IV fluids improving Hypertension Hyperlipidemia COPD, chronic confirm home meds, restart as appropriate tobacco dependance Smokes 1 pack/day. cessation advised VTE: Lovenox Code: Full Dispo: Home, 1 day pending cardiac recs, ALEJANDRO resolves Time Spent Managing Pts Care (In Minutes): 39
[2024-03-01] MEDS ORDERED: SODIUM CHLORIDE 0.9% 10ML INJ IV PRN (11:21)
[2024-03-01] MEDS ORDERED: PANTOPRAZOLE 40 MG INJ IVP SCH (11:30)
[2024-03-01] MEDS ORDERED: SUCRALFATE 1 GM TABLET PO SCH (11:30)
--- NOTE | 2024-03-02 06:26 | P.DS ---
Admission Date: 02/29/24 Discharge Date: 03/02/24 Disposition: AMA-LEFT AGAINST MEDICAL ADVIC Reason for Admission: chest pain Consultations: Cardiology - Dr. Smith Brief History of Present Illness: 59yo M, PMH: coronary disease status post PCI, core carotid artery stenosis status post CEA in the past and peripheral artery disease. Patient present to the ER accompanied by complaining of acute onset of chest pain. Patient was driving when his symptoms recurred. He will usually take nitroglycerin at home but as he was on the road this time, he was unable to do so. In the meantime, his chest pain persists. He is describing a substernal chest pain that is nonradiating. He arrived in the ER alert and awake. His initial EKG is normal. His high-sensitivity troponin is also normal at 5.6. Patient has a mildly elevated BNP at 240, and creatinine of 2.43. He is being admitted for ACS rule out. Hospital Course: Problem List: Chest discomfort GERD CAD s/p PCI Carotid artery stenosis s/p CEA Hx PAD ALEJANDRO Hypertension Hyperlipidemia COPD, chronic tobacco dependance Hx sessile polyps Physician discharge instructions: Patient presented with left-sided chest discomfort. Cardiac workup this hospitalization including chest xray, EKG, troponins x3 were all negative. Cardiology was consulted and recommended patient follow up in office further outpatient stress test. No evidence to warrant further inpatient cardiac work up. When describing his symptoms, patient reports dealing with some worsening intermittent acid reflux/heartburn symptoms associated with nausea/diarrhea this past week. He denied any prior GERD/reflux symptoms prior to this episode and states taking pepcid at home relieved some of his symptoms prior to hospitalization. Follow up with PCP for further discussion and consider following up with GI for further work up. He was also noted to have an ALEJANDRO on admission with serum creatinine of 2.15 which quickly improved with IV hydration. ALEJANDRO secondary to dehydration/diarrhea. Creatinine on discharge: 1.52. Advised to repeat blood work in ~1 week to ensure continued improvement/resolution of renal function. Medications: Follow up: PCP 3-5 days Cardiology 2-4 weeks Please call to schedule / confirm appointments Physical Exam: GEN: Alert, oriented, NAD HEENT: Normal conjunctiva, sclera anicteric, CV: Regular rate and rhythm, no edema Pulm: Nonlabored respirations on room air, clear bilaterally ABD: soft, nontender, nondistended Neuro: Normal speech, normal affect Vital Signs/Physical Exam: Temp Pulse Resp BP Pulse Ox 97.8 F 86 16 121/72 95 03/01/24 08:00 03/01/24 08:00 03/01/24 08:00 03/01/24 08:00 03/01/24 08:00 Laboratory Data at Discharge: WBC 8.90 thou/uL (4.3-10.9) 02/29/24 14:33 Hgb 14.5 g/dL (13.6-17.9) 02/29/24 14:33 Hct 41.0 % (39.6-49.0) 02/29/24 14:33 Plt Count 279 thou/uL (152-406) 02/29/24 14:33 Sodium 140 mEq/L (136-145) 03/01/24 05:36 Potassium 3.8 mEq/L (3.5-5.1) 03/01/24 05:36 BUN 26 mg/dL (7-18) H 03/01/24 05:36 Creatinine 1.52 mg/dL (0.70-1.30) H 03/01/24 05:36 Glucose 91 mg/dL (74-106) 03/01/24 05:36 Total Bilirubin 0.9 mg/dL (0.2-1.0) 02/29/24 14:33 AST 51 U/L (15-37) H 02/29/24 14:33 ALT 40 U/L (16-61) 02/29/24 14:33 Alkaline Phosphatase 79 U/L (45-117) 02/29/24 14:33 Triglycerides 168 mg/dL (<150) H 02/29/24 22:55 Cholesterol 89 mg/dL (<200) 02/29/24 22:55 HDL Cholesterol 31 mg/dL (40-60) L 02/29/24 22:55 Cholesterol/HDL Ratio 2.87 02/29/24 22:55 Home Medications: Aspirin [Aspirin EC 81 MG] 81 mg PO DAILY 01/30/16 Amlodipine [Norvasc*] 5 mg PO DAILY 03/01/24 Atorvastatin Calcium 40 mg PO DAILY 03/01/24 Buspirone HCl 5 mg PO DAILY 03/01/24 Clopidogrel Bisulfate [Plavix*] 75 mg PO DAILY 03/01/24 Losartan Potassium 100 mg PO DAILY 03/01/24 Metoprolol Tartrate [Lopressor*] 100 mg PO DAILY 03/01/24 Physician Discharge Instructions: Physician discharge instructions: Patient presented with left-sided chest discomfort. Cardiac workup this hospitalization including chest xray, EKG, troponins x3 were all negative. Cardiology was consulted and recommended patient follow up in office further outpatient stress test. No evidence to warrant further inpatient cardiac work up. When describing his symptoms, patient reports dealing with some worsening intermittent acid reflux/heartburn symptoms associated with nausea/diarrhea this past week. He denied any prior GERD/reflux symptoms prior to this episode and states taking pepcid at home relieved some of his symptoms prior to hospitalization. Recommend starting trial of protonix, carafate. Follow up with PCP for further discussion and consider following up with GI for further work up. Patient was feeling better, chest discomfort resolved, nausea/heartburn improved, and was deemed stable for discharge. He was also noted to have an ALEJANDRO on admission with serum creatinine of 2.15 which quickly improved with IV hydration. ALEJANDRO secondary to dehydration/diarrhea. Creatinine on discharge: 1.52. Advised to repeat blood work in ~1 week to ensure continued improvement/resolution of renal function. Medications: Protonix Carafate Follow up: PCP 3-5 days Cardiology 2-4 weeks Please call to schedule / confirm appointments Followup: ALEJANDRO PATEL [Primary Care Provider] -
--- NOTE | 2024-03-02 12:43 | EKG ---
Test Date: 2024-02-29 Test Time: 14:23:45 Ski Edge Painter: MECHE MEASUREMENT RESULTS: Intervals: Rate: 92 DE: 154 QRSD: 96 QT: 382 QTc: 472 [place]: P: 76 DE: 154 QRS: 78 T: 65 INTERPRETIVE STATEMENTS: Normal sinus rhythm Normal ECG Compared to ECG 02/08/2017 20:45:50 Myocardial infarct finding no longer present Electronically Signed On 03-02-24 12:39:38 CASTING AGENT by Zaki Smith
== END 2024-03-01 14:06 | disposition left against medical advice (07) ==
LOC: ER 14:22 → ERHOLD 19:33 → 2ND 03-01 07:50
PROVIDERS: ADMIT Internal Medicine; ATTEND Hospitalist
DX: R07.9 Chest pain, unspecified (principal); J44.9 Chronic obstructive pulmonary disease, unspecified; N17.9 Acute kidney failure, unspecified; K21.9 Gastro-esophageal reflux disease without esophagitis; I25.10 Atherosclerotic heart disease of native coronary artery without angina pectoris; I73.9 Peripheral vascular disease, unspecified; I25.2 Old myocardial infarction; I10 Essential (primary) hypertension; E78.5 Hyperlipidemia, unspecified; F17.210 Nicotine dependence, cigarettes, uncomplicated; R11.0 Nausea; R19.7 Diarrhea, unspecified; Z53.29 Procedure and treatment not carried out because of patient's decision for other reasons; Z88.5 Allergy status to narcotic agent; Z86.73 Personal history of transient ischemic attack (TIA), and cerebral infarction without residual deficits
CPT/HCPCS: 96361; 93005; 85025; 80048 ×2; 36415; 80061; 80076; 84484 ×3; 83880; 71045; 96374; 99285; J1650; J2405; J7030 ×3; G0378 ×4

== ENCOUNTER 2025-01-31 20:39 | Emergency (ER) | payer MEDICAID ==
[2025-01-31] MEDS ORDERED: MORPHINE 4 MG/ML SYR ONE (21:38)
[2025-01-31] MEDS ORDERED: DIAZEPAM 10 MG/2 ML INJ SYRINGE ONE (21:38)
[2025-01-31 21:44] LABS: Absolute Lymphocytes (CBC) 1.8 K/uL (0.7-4.9); Hematocrit 42.8 % (39.6-49.0); Hemoglobin 14.9 g/dL (13.6-17.9); MCH 32.5 pg (27.0-35.0); MCHC 34.8 g/dL (32.0-36.0); MCV 93.3 fL (80-100); MPV 8.2 fL (7.6-11.3); Nucleated RBC Absolute Count 0.0 (0-0); Nucleated Red Blood Cells % 0.1 % (0-0); RBC Red Blood Cell Count 4.59 M/uL (4.33-5.43); White Blood Count 6.00 thou/uL (4.3-10.9)
[2025-01-31 22:06] LABS: Anion Gap 9.7 mEq/L (5.0-15.0); BUN Blood Urea Nitrogen 10.0 mg/dL (7-18); Glucose Level 126.0 mg/dL (74-106); Magnesium 1.5 mg/dL (1.6-2.4); Potassium 2.7 mEq/L (3.5-5.1); Troponin High Sensitivity 12.9 pg/mL (<58.9)
[2025-01-31] MEDS ORDERED: NA CHLORIDE 0.9% 1,000 ML ONE (23:16)
[2025-01-31] MEDS ORDERED: KCL 20 MEQ/100 mL IVPB 100 ML IV ONE (23:16)
[2025-01-31] MEDS ORDERED: MAGNESIUM SULFATE 1 gm IVPB 1 GM/100 ML BAG IV ONE (23:16)
--- NOTE | 2025-01-31 23:58 | RAD REPORT ---
EXAMINATION: ONE VIEW CHEST XR CLINICAL INDICATION: Male, 59 years old.,left upper back pain TECHNIQUE: Frontal chest projection is submitted. Examination is limited by patient positioning and t echnique. COMPARISON: 02/29/2024 FINDINGS: The lungs are well inflated and clear. No pneumothorax or sizable effusion. The heart is normal in s ize. Mediastinal contours are unremarkable. IMPRESSION: No acute intrathoracic abnormalities.
[2025-02-01] MEDS ORDERED: MORPHINE 4 MG/ML SYR ONE (02:06)
--- NOTE | 2025-02-01 03:24 | ER ---
Nurse's Notes [facility] Name: Chong Ocampo Age: 59 yrs Sex: Male : 1965 Arrival Date: 01/31/2025 Time: 20:39 Bed 15 Private MD: Diagnosis: Cervical disc disorder with radiculopathy, unspecified cervical region;Dorsalgia, unspecified;Pain in left shoulder;Hypokalemia Presentation: 01/31 21:02 Chief complaint: Patient states: NECK PAIN FOR 2 WEEKS, NOW RADIATING TO LT ARM, LT dd2 SHOULDER AND DOWN LT SIDE OF BACK. PT REPORTS UNABLE TO MOVE NECK IN CERTAIN POSITIONS. Coronavirus screen: At this time, the client does not indicate any symptoms associated with coronavirus-19. Ebola Screen: No symptoms or risks identified at this time. Initial Sepsis Screen: Does the patient meet any 2 criteria? No. Patient's initial sepsis screen is negative. Does the patient have a suspected source of infection? No. Patient's initial sepsis screen is negative. Risk Assessment: Do you want to hurt yourself or someone else? Patient reports no desire to harm self or others. Onset of symptoms was January 17, 2025. 21:02 Method Of Arrival: Ambulatory dd2 21:02 Acuity: FILI 3 dd2 Triage Assessment: 21:04 General: Appears uncomfortable, Behavior is calm, cooperative, appropriate for age. dd2 Pain: Complains of pain in posterior cervical area, left trapezius, left scapular area, thoracic area, anterior aspect of left shoulder, left bicep and left side of neck. Musculoskeletal: Circulation, motion, and sensation intact. Range of motion: intact in left shoulder. Historical: - Allergies: 21:04 No Known Allergies; dd2 - PMHx: 21:04 COPD; CVA; High Cholesterol; Hepatitis; Hypertension; Myocardial infarction; dd2 Pancreatitis; Pneumonia; - PSHx: 21:04 carotid stents; heart stent; Stented artery; dd2 - Immunization history:: Adult Immunizations up to date. - Infectious Disease History:: Denies. - Social history:: Smoking status: Patient reports the use of cigarette tobacco products, smokes one-half pack cigarettes per day. Screenin:20 [facility] ED Fall Risk Assessment (Adult) History of falling in the last 3 months, kt5 including since admission No falls in past 3 months (0 pts) Confusion or Disorientation No (0 pts) Intoxicated or Sedated No (0 pts) Impaired Gait No (0 pts) Mobility Assist Device Used No (0 pt) Altered Elimination No (0 pt) Score/Fall Risk Level 0 - 2 = Low Risk Oriented to surroundings, Maintained a safe environment. Abuse screen: Denies threats or abuse. Nutritional screening: No deficits noted. Tuberculosis screening: No symptoms or risk factors identified. Assessment: 21:20 General: Appears in no apparent distress. uncomfortable, Behavior is calm, cooperative, kt5 appropriate for age. Pain: Complains of pain in left shoulder and neck and left arm and back and left bicep and anterior aspect of left shoulder and thoracic area and left scapular area and left trapezius and posterior cervical area and left side of neck Pain currently is 10 out of 10 on a pain scale. Quality of pain is described as sharp, Pain began 2 weeks Is continuous. Neuro: No deficits noted. Mcconnell Agitation-Sedation Scale (RASS): 0 - Alert and Calm Level of Consciousness is awake, alert, obeys commands, Oriented to person, place, time. Cardiovascular: No deficits noted. Denies chest pain, Heart tones S1 S2 present Capillary refill < 3 seconds Clubbing of nail beds is absent JVD is absent Pulses are all present. Edema is absent. Respiratory: No deficits noted. Airway is patent Trachea midline Respiratory effort is even, unlabored, Respiratory pattern is regular, symmetrical, Breath sounds are clear bilaterally. GI: No deficits noted. No signs and/or symptoms were reported involving the gastrointestinal system. Abdomen is round non-distended, Bowel sounds present X 4 quads. Abd is soft and non tender X 4 quads. : No deficits noted. No signs and/or symptoms were reported regarding the genitourinary system. EENT: No deficits noted. No signs and/or symptoms were reported regarding the EENT system. Derm: No deficits noted. No signs and/or symptoms reported regarding the dermatologic system. Skin is intact, Skin is dry, Skin is pink, warm \T\ dry. Skin temperature is warm. Musculoskeletal: Reports pain in left shoulder and neck and left arm and back and left bicep and anterior aspect of left shoulder and thoracic area and left scapular area and left trapezius and posterior cervical area and left side of neck since 2 weeks. Denies trauma, pt states that i slept on it wrong. 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 kt5 22:07 Reassessment: Patient appears in no apparent distress at this time. Patient states kt5 feeling better. Patient states symptoms have improved. 22:07 Reassessment: Patient and/or family updated on plan of care and expected duration. Pain kt5 level reassessed. Patient is alert, oriented x 3, equal unlabored respirations, skin warm/dry/pink. General:. 22:53 Reassessment: Patient appears in no apparent distress at this time. Patient and/or kt5 family updated on plan of care and expected duration. Pain level reassessed. Patient is alert, oriented x 3, equal unlabored respirations, skin warm/dry/pink. Patient denies pain at this time. Patient states feeling better. Patient states symptoms have improved. 23:57 Reassessment: Patient appears in no apparent distress at this time. Patient and/or kt5 family updated on plan of care and expected duration. Pain level reassessed. Patient is alert, oriented x 3, equal unlabored respirations, skin warm/dry/pink. Patient states feeling better. Patient states symptoms have improved. 02/01 00:03 General: PT TO CT WITH CT. kt5 00:21 General: pt back from ct tolerated well. kt5 00:21 Reassessment: Patient appears in no apparent distress at this time. Patient and/or kt5 family updated on plan of care and expected duration. Pain level reassessed. Patient is alert, oriented x 3, equal unlabored respirations, skin warm/dry/pink. Patient denies pain at this time. Patient states feeling better. Patient states symptoms have improved. 01:40 Reassessment: Patient appears in no apparent distress at this time. Patient and/or kt5 family updated on plan of care and expected duration. Pain level reassessed. Patient is alert, oriented x 3, equal unlabored respirations, skin warm/dry/pink. Patient states feeling better. Patient states symptoms have improved. 03:07 Reassessment: Patient appears in no apparent distress at this time. Patient and/or kt5 family updated on plan of care and expected duration. Pain level reassessed. Patient is alert, oriented x 3, equal unlabored respirations, skin warm/dry/pink. Patient states feeling better. Patient states symptoms have improved. 04:13 Reassessment: Patient appears in no apparent distress at this time. Patient and/or kt5 family updated on plan of care and expected duration. Pain level reassessed. Patient is alert, oriented x 3, equal unlabored respirations, skin warm/dry/pink. Patient states feeling better. Patient states symptoms have improved. Vital Signs: 01/31 21:02 BP 172 / 108; Pulse 119; Resp 17; Temp 98.3; Pulse Ox 97% on R/A; Weight 93.89 kg; Pain dd2 01/30; 21:53 BP 179 / 96; Pulse 118; Resp 18; Pulse Ox 92% ; kt5 22:53 BP 136 / 92; Pulse 103; Resp 16; Pulse Ox 92% ; Pain 4/10; kt5 23:57 BP 175 / 102; Pulse 98; Resp 16; Pulse Ox 91% ; kt5 02/01 00:21 BP 155 / 99; Pulse 92; Resp 16; Pulse Ox 92% ; Pain 4/10; kt5 01:40 BP 162 / 93; Pulse 96; Resp 16; Pulse Ox 97% ; Pain 4/10; kt5 03:07 BP 168 / 104; Pulse 89; Resp 14; Pulse Ox 92% ; Pain 0/10; kt5 04:13 BP 163 / 99; Pulse 90; Resp 18; Temp 98.6; Pulse Ox 95% ; Pain 5/10; kt5 01/31 21:02 Pain Scale: Adult dd2 22:53 Pain Scale: Adult kt5 02/01 00:21 Pain Scale: Adult kt5 01:40 Pain Scale: Adult kt5 03:07 Pain Scale: Adult kt5 04:13 Pain Scale: Adult kt5 ED Course: 01/31 20:42 Patient arrived in ED. mr 21:02 Braulio Campa PA-C is PHCP. cp 21:02 Braulio Hawkins MD is Attending Physician. cp 21:04 Triage completed. dd2 21:04 Arm band placed on right wrist. dd2 21:20 Patient has correct armband on for positive identification. Bed in low position. Call kt5 light in reach. Side rails up X 1. Client placed on continuous cardiac and pulse oximetry monitoring. NIBP monitoring applied. public health aide on. Door closed. Noise minimized. Warm blanket given. Pillow given. 21:20 No provider procedures requiring assistance completed. kt5 21:23 Roula Johnson, RN is Primary Nurse. kt5 21:40 Inserted saline lock: 20 gauge in right hand, using aseptic technique. Blood collected. kt5 Flushed with 10 mL NS. 21:49 Basic Metabolic Panel Sent. kt5 21:49 CBC with Diff Sent. kt5 21:49 Magnesium Sent. kt5 21:49 Troponin HS Sent. kt5 21:57 XRAY Chest (1 view) In Process Unspecified. EDMS 23:44 Radiology exam delayed due to IV insertion attempt and/or patient not having ag6 appropriate IV at this time. 23:56 Inserted saline lock: 20 gauge in right forearm, using aseptic technique. Flushed with kt5 10 mL NS. 12 00:22 CT Head Angio In Process Unspecified. EDMS 00:22 CT Head C Spine In Process Unspecified. EDMS 00:22 CT Neck Angio In Process Unspecified. EDMS 03:37 IV discontinued, intact, bleeding controlled, No redness/swelling at site. Pressure kt5 dressing applied. 04:13 Provided Education on: follow up and meds. kt5 Administered Medications: 01/31 21:49 Drug: Diazepam IVP 5 mg IVP once Route: IVP; Site: right hand; kt5 23:02 Follow up: Response: No adverse reaction; Pain is decreased kt5 21:49 Drug: morphine IVP or IV 4 mg IVP once over 4 mins Route: IVP; Infused Over: 4 mins; kt5 Site: right hand; 23:02 Follow up: Response: No adverse reaction; Pain is decreased kt5 23:47 Drug: Potassium Chloride IV 20 mEq IV at calculated rate once; administer over 1-2 br2 hours Route: IV; Rate: calculated rate; Site: left forearm; 02/01 02:00 Follow up: Response: No adverse reaction kt5 01/31 23:47 Drug: NS 0.9% IV 1000 ml IV at 1 bolus Per protocol; to be given as a bolus over 120 br2 minutes Route: IV; Rate: 1 bolus; Site: left forearm; 02/01 02:01 Follow up: Response: No adverse reaction; IV Status: Completed infusion; IV Intake: kt5 1000ml 01/31 23:47 Drug: Magnesium Sulfate IVPB 1 grams IVPB once over 1 hrs Route: IVPB; Infused Over: 1 br2 hrs; Site: right hand; 02/01 01:01 Follow up: Response: No adverse reaction kt5 02:09 Drug: morphine IVP or IV 4 mg IVP once over 4 mins Route: IVP; Infused Over: 4 mins; kt5 Site: right hand; 03:39 Follow up: Response: No adverse reaction; Pain is decreased kt5 Medication: 01/31 21:20 VIS not applicable for this client. kt5 Intake: 02/01 02:01 IV: 1000ml; Total: 1000ml. kt5 Outcome: 03:24 Discharge ordered by . uri 04:13 Discharged to home ambulatory, with family, kt5 04:13 Condition: improved 04:13 Discharge instructions given to patient, Instructed on discharge instructions, follow up and referral plans. Demonstrated understanding of instructions, follow-up care, medications, Prescriptions given X 3, 04:53 Patient left the ED. kt5 Signatures: Dispatcher [employer] EDMS HéctorCassi, Reg Reg mr Braulio Campa, PA-C PA-C Penny Bowden ag6 Alison Shelby RN RN br2 ODELL KO RN RN dd2 Roula Johnson RN RN kt5
--- NOTE | 2025-02-01 03:24 | EDPHYS ---
Physician Documentation [facility] Name: Chong Ocampo Age: 59 yrs Sex: Male : 1965 Arrival Date: 01/31/2025 Time: 20:39 Bed 15 Private MD: ED Physician Braulio Hawkins HPI: 01/31 21:15 This 59 yrs old Male presents to ER via Ambulatory with complaints of Shoulder Pain, cp Back Pain, Neck pain. 02/01 21:15 The patient or guardian complains of pain, that is acute. posterior aspect of left cp shoulder. Context: resulted from an unknown reason, The patient reports no obvious deformity. Onset: The symptoms/episode began/occurred 2 week(s) ago. Modifying factors: The symptoms are aggravated by movement. Associated signs and symptoms: Pertinent positives: left side neck pain, neck stiffness, tingling and radiating pain down left arm, Pertinent negatives: abdominal pain, chest pain, diaphoresis, shortness of breath. Severity of symptoms: in the emergency department the symptoms are unchanged, despite home interventions. Historical: - Allergies: 01/31 21:04 No Known Allergies; dd2 - PMHx: 21:04 COPD; CVA; High Cholesterol; Hepatitis; Hypertension; Myocardial infarction; dd2 Pancreatitis; Pneumonia; - PSHx: 21:04 carotid stents; heart stent; Stented artery; dd2 - Immunization history:: Adult Immunizations up to date. - Infectious Disease History:: Denies. - Social history:: Smoking status: Patient reports the use of cigarette tobacco products, smokes one-half pack cigarettes per day. ROS: 21:20 Constitutional: Negative for body aches, chills, fever, poor PO intake, cp 21:20 Neck: Positive for pain with movement, pain at rest, stiffness, cp 21:20 Eyes: Negative for injury, pain, redness, and discharge, cp 21:20 ENT: Negative for drainage from ear(s), ear pain, sore throat, difficulty swallowing, difficulty handling secretions, 21:20 Cardiovascular: Negative for chest pain, edema, palpitations, 21:20 Respiratory: Negative for cough, shortness of breath, wheezing, 21:20 Abdomen/GI: Negative for abdominal pain, vomiting, diarrhea, constipation, 21:20 Back: Positive for pain at rest, pain with movement, of the left trapezius, left scapular area and left subscapular area, 21:20 MS/extremity: Positive for tingling, of the left arm, radiating pain, Negative for injury or acute deformity, decreased range of motion, 21:20 Neuro: Negative for altered mental status, dizziness, headache, syncope, Exam: 21:25 Constitutional: The patient appears in no acute distress, alert, awake, cp non-diaphoretic, non-toxic, well developed, well nourished, uncomfortable, 21:25 Head/Face: Normocephalic, atraumatic. cp 21:25 Eyes: Periorbital structures: appear normal, Pupils: equal, round, and reactive to light and accomodation, Extraocular movements: intact throughout, Conjunctiva: normal, no exudate, no injection, Sclera: no appreciated abnormality, Lids and lashes: appear normal, bilaterally, 21:25 ENT: External ear(s): are unremarkable, Nose: is normal, Mouth: Lips: moist, Oral mucosa: moist, Posterior pharynx: Airway: no evidence of obstruction, patent, 21:25 Neck: C-spine: vertebral tenderness, is not appreciated, crepitus, is not appreciated, ROM/movement: pain, that is moderate, with any movement, limited range of motion, that is moderate, when rotating to the left, Meningeal signs: are not present, 21:25 Chest/axilla: Inspection: normal, Palpation: is normal, no crepitus, no tenderness, 21:25 Cardiovascular: Rate: tachycardic, Rhythm: regular, Edema: is not appreciated, JVD: is not appreciated, 21:25 Respiratory: the patient does not display signs of respiratory distress, Respirations: normal, no use of accessory muscles, no retractions, labored breathing, is not present, Breath sounds: are clear throughout, no decreased breath sounds, no stridor, no wheezing, 21:25 Abdomen/GI: Inspection: abdomen appears normal, Palpation: abdomen is soft and non-tender, in all quadrants, 21:25 Back: pain, that is moderate, of the left trapezius, left scapular area and left subscapular area, ROM is painful, vertebral tenderness, is not appreciated, 21:25 Skin: cellulitis, is not appreciated, no rash present. 21:25 Neuro: Orientation: to person, place \T\ time. Mentation: is normal, Motor: moves all fours, no focal deficits, Sensation: no obvious gross deficits, 22:17 ECG was reviewed by the Attending Physician. Vital Signs: 21:02 BP 172 / 108; Pulse 119; Resp 17; Temp 98.3; Pulse Ox 97% on R/A; Weight 93.89 kg; Pain dd2 01/30; 21:53 BP 179 / 96; Pulse 118; Resp 18; Pulse Ox 92% ; kt5 22:53 BP 136 / 92; Pulse 103; Resp 16; Pulse Ox 92% ; Pain 4/10; kt5 23:57 BP 175 / 102; Pulse 98; Resp 16; Pulse Ox 91% ; kt5 02/01 00:21 BP 155 / 99; Pulse 92; Resp 16; Pulse Ox 92% ; Pain 4/10; kt5 01:40 BP 162 / 93; Pulse 96; Resp 16; Pulse Ox 97% ; Pain 4/10; kt5 03:07 BP 168 / 104; Pulse 89; Resp 14; Pulse Ox 92% ; Pain 0/10; kt5 04:13 BP 163 / 99; Pulse 90; Resp 18; Temp 98.6; Pulse Ox 95% ; Pain 5/10; kt5 01/31 21:02 Pain Scale: Adult dd2 22:53 Pain Scale: Adult kt5 02/01 00:21 Pain Scale: Adult kt5 01:40 Pain Scale: Adult kt5 03:07 Pain Scale: Adult kt5 04:13 Pain Scale: Adult kt5 MDM: 01/31 21:03 Medical Screening Exam initiated 22:00 Differential diagnosis: tendonitis, cervical radiculopathy, bursitis, carotid stenosis, cp carotid dissection. 02/01 03:24 Data reviewed: vital signs, nurses notes, lab test result(s), EKG, radiologic studies, cp CT scan, plain films. 03:24 I considered the following discharge prescriptions or medication management in the emergency department Medications were administered in the Emergency Department. See MAR. Independent interpretation of the following test(s) in the Emergency Department EKG: See my EKG interpretation above X-Ray: My interpretation is chest xray negative for infiltrates. Test considered but Not performed: MRI: cervical spine. Care significantly affected by the following chronic conditions: Hypertension, Chronic Obstructive Pulmonary Disease. Counseling: I had a detailed discussion with the patient and/or guardian regarding the historical points, exam findings, and any diagnostic results supporting the discharge/admit diagnosis, lab results, radiology results, the need for outpatient follow up, a family practitioner, to return to the emergency department if symptoms worsen or persist or if there are any questions or concerns that arise at home. Response to treatment: the patient's symptoms have mildly improved after treatment, and as a result, I will discharge patient. 01/31 21:14 Order name: Basic Metabolic Panel; Complete Time: 22:37 cp 01/31 21:14 Order name: CBC with Diff; Complete Time: 22:37 cp 01/31 21:14 Order name: Magnesium; Complete Time: 22:37 cp 01/31 21:14 Order name: Troponin HS; Complete Time: 22:37 cp 01/31 21:14 Order name: XRAY Chest (1 view); Complete Time: 02:40 cp 02/01 02:41 Interpretation: Report review. 01/31 22:41 Order name: CT Head Angio 01/31 22:41 Order name: CT Head C Spine 01/31 22:41 Order name: CT Neck Angio 01/31 21:14 Order name: EKG; Complete Time: 21:14 cp 01/31 21:14 Order name: Cardiac monitoring; Complete Time: 21:49 cp 01/31 21:14 Order name: EKG - Nurse/Tech; Complete Time: 22:12 cp 01/31 21:14 Order name: IV Saline Lock; Complete Time: 21:49 cp 01/31 21:14 Order name: Labs collected and sent; Complete Time: 21:49 cp 01/31 21:14 Order name: O2 Per Protocol; Complete Time: 21:49 cp 01/31 21:14 Order name: O2 Sat Monitoring; Complete Time: 21:49 cp EC/11 22:17 Rate is 117 beats/min. Rhythm is regular. FL interval is normal. QRS interval is cp normal. QT interval is normal. T waves are Inverted in lead aVR. Interpreted by me. Reviewed by me. Administered Medications: 21:49 Drug: Diazepam IVP 5 mg IVP once Route: IVP; Site: right hand; kt5 23:02 Follow up: Response: No adverse reaction; Pain is decreased kt5 21:49 Drug: morphine IVP or IV 4 mg IVP once over 4 mins Route: IVP; Infused Over: 4 mins; kt5 Site: right hand; 23:02 Follow up: Response: No adverse reaction; Pain is decreased kt5 23:47 Drug: Potassium Chloride IV 20 mEq IV at calculated rate once; administer over 1-2 br2 hours Route: IV; Rate: calculated rate; Site: left forearm; 02/01 02:00 Follow up: Response: No adverse reaction kt5 01/31 23:47 Drug: NS 0.9% IV 1000 ml IV at 1 bolus Per protocol; to be given as a bolus over 120 br2 minutes Route: IV; Rate: 1 bolus; Site: left forearm; 02/01 02:01 Follow up: Response: No adverse reaction; IV Status: Completed infusion; IV Intake: kt5 1000ml 01/31 23:47 Drug: Magnesium Sulfate IVPB 1 grams IVPB once over 1 hrs Route: IVPB; Infused Over: 1 br2 hrs; Site: right hand; 02/01 01:01 Follow up: Response: No adverse reaction kt5 02:09 Drug: morphine IVP or IV 4 mg IVP once over 4 mins Route: IVP; Infused Over: 4 mins; kt5 Site: right hand; 03:39 Follow up: Response: No adverse reaction; Pain is decreased kt5 Disposition Summary: 02/01/25 03:24 Discharge Ordered Notes: Location: Home cp Problem: new cp Symptoms: have improved cp Condition: Stable cp Diagnosis - Cervical disc disorder with radiculopathy, unspecified cervical region cp - Dorsalgia, unspecified cp - Pain in left shoulder cp - Hypokalemia cp Followup: cp - With: Private Physician - When: 2 - 3 days - Reason: Recheck today's complaints Discharge Instructions: - Discharge Summary Sheet cp - Acute Back Pain, Adult cp - Cervical Radiculopathy cp - Potassium Content of Foods cp - Herniated Disk cp - Musculoskeletal Pain cp - Shoulder Pain cp - Shoulder Range of Motion Exercises cp - Back Exercises cp Forms: - Medication Reconciliation Form cp - Antibiotic Education cp - Prescription Opioid Use cp - Patient Portal Instructions cp - Leadership Thank You Letter cp Prescriptions: - Diclofenac Sodium 75 mg Oral Tablet Sustained Release - take 1 tablet ORAL route 2 times per day; 30 tablet; Refills: 0, Product cp Selection Permitted - Medrol (Darren) 4 mg Oral Tablets, Dose Pack - take 1 tablet ORAL route as directed - follow package instructions; 1 packet; cp Refills: 0, Product Selection Permitted - methocarbamol 500 mg Oral tablet - take 2 tablets ORAL route 3 times per day; 30 tablet; Refills: 0, Product cp Selection Permitted Addendum: 02/04/2025 06:55 Co-signature as Attending Physician, Braulio Hawkins MD I agree with the assessment and c lipscomb plan of care. Signatures: Dispatcher [employer] EDBraulio Lynn MD MD cha Page, Corey, PA-C PA-C Alison Kirk, RN RN br2 ODELL KO RN RN dd2 Roula Johnson RN RN kt5 Corrections: (The following items were deleted from the chart) 01/31 22:42 22:42 Head Angio+CT.RAD.BRZ ordered. EDMS EDMS 22:42 22:42 Head C Spine MPR Wo Con+CT.RAD.BRZ ordered. EDMS EDMS 22:42 22:42 Neck Angio+CT.RAD.BRZ ordered. EDMS EDMS
--- NOTE | 2025-02-01 04:00 | RAD REPORT ---
EXAM DESCRIPTION: CT HEAD AND CERVICAL SPINE WITHOUT CONTRAST 02/01/2025 2:52 AM CDT CLINICAL HISTORY: 59 years, Male, Neck pain, headache. COMPARISON: CT Head Cervical Spine 02/07/2021. TECHNIQUE: CT imaging of the head and cervical spine were performed without IV contrast. Subsequent 2 -D multiplanar reformats were generated in the sagittal and coronal plane and reviewed. This exam was performed according to our departmental dose-optimization program which includes use of Automated Exposure Control, adjustment of the mA and/or kV according to patient size and/or use of iterative reconstruction technique. Contrast: No intravenous contrast. FINDINGS: Head: Brain: Brain parenchyma as well as the harman-white matter differentiation demonstrate to be within nor mal limits. There is no evidence for acute intraparenchymal hemorrhage. There is no midline shifts and/or mass effect. No focal areas of hypodensities Ventricles/CSF spaces: Normal size and morphology. Orbits: Normal. Paranasal sinuses: Imaged paranasal sinuses are clear. Mastoids/middle ears: Clear. Bones: Calvarium, skull base, and imaged facial bones are normal. Scalp/facial soft tissues: No acute scalp or soft tissue injury. Cervical spine: Curvature: There is straightening of the cervical spine perhaps related to position an/or less likely due to muscle spasm. Otherwise the alignment of the vertebral bodies demonstrate to be normal. Bones: There is no evidence of fracture or subluxation. Discs: There is degenerative disc disease with anterior spondylosis and posterior osteophyte complex at C5-C7. There is mild spinal canal narrowing at C6/C7. Joints: Minimal uncovertebral degenerative changes at C2-C5. Soft tissues: There is no prevertebral soft tissue swelling. Sagittal coronal reformatted images demonstrate no subluxation or bony abnormalities. Lung apices: The lung apices demonstrate to be within normal limits. IMPRESSION: No acute intracranial pathology. No acute fracture or subluxation of the cervical spine. Degenerative disc disease at C5-C7 with mild spinal canal narrowing at C6/C7. Electronically signed by: Richard Escamilla MD 02/01/2025 03:07 AM CDT Due to temporary technical issues with the PACS/[employer] reporting system, reports are being alphonso d by the in-house radiologist without review as a courtesy to ensure prompt reporting the interpreting radiologist is fully responsible for the content of the report. Transcribed Date/Time: 02/01/2025 3:59 AM
--- NOTE | 2025-02-01 04:00 | RAD REPORT ---
EXAM DESCRIPTION: CT HEAD ANGIOGRAPHY WITH IV CONTRAST, CT NECK ANGIOGRAPHY WITH IV CONTRAST 02/02/20 25 2:48 AM CDT CLINICAL HISTORY: 59 years, Male, Headache, pain. COMPARISON: CT Head 11/04/2023(report only), CT Neck 05/07/2021, CT Head Cervical Spine 02/07/2021. PROCEDURE: Multiple transaxial tomograms from the aortic arch through the brain were performed after administrat ion of a 100 cc of Omnipaque 350 for complete opacification of the carotid arteries and intracranial vessels. Subsequent 2-D and 3-D multiplanar reformats, volume rendering technique and maximum intensity projec tion images were generated and reviewed An individualized dose optimization technique, Automated Exposure Control, was utilized for the perfo rmed procedure. CAROTID STENOSIS REFERENCE USING NASCET CRITERIA: % ICA stenosis = (1 - narrowest ICA diameter/diamet er of distal cervical ICA) x 100. Mild - <50% stenosis. Moderate - 50-69% stenosis. Severe - 70-94% stenosis. Near occlusion - 95-99% stenosis. Occluded - 100% stenosis. FINDINGS: Ascending aorta: Not included in the field of imaging Right carotid artery: Normal opacification is demonstrated within the right common carotid artery and at the carotid bifurcation. The carotid bulb demonstrate minimal peripheral atheromatous plaque. There is circumferential atheromatous plaque with 40-50% caliber narrowing. The mid and distal portio ns of the right internal carotid artery demonstrated to be patent. No evidence for stenosis and/or occlusion. Left carotid artery: Normal opacification is demonstrated within the left common carotid artery and a t the carotid bifurcation. The carotid bulb multiple surgical clips within the left neck suggesting previous endarterectomy.. No evidence for stenosis. The proximal, mid and distal portion of the left internal carotid artery demonstrated to be patent. No evidence for stenosis and/or occlusion. Intracranial circulation: Intracranial portions of the internal carotid arteries the cavernous sinus portions demonstrates the presence of minimal peripheral atheromatous plaque with no evidence for stenosis and/or aneurysm. The anterior cerebral arteries, middle cerebral arteries and its branches d emonstrate normal opacification with no evidence for stenosis, occlusion and/or aneurysm. There is normal venous drainage with no evidence for sinus vein thrombosis. Vertebrobasilar system: The posterior circulation demonstrate codominant bilateral vertebral arteries with no evidence for stenosis and/or evidence for significant dissection. The vertebrobasilar system and [employer] demonstrate to be normal with no evidence for aneurysm and/or occlusion. The brain parenchyma demonstrate normal harman-white matter differentiation with no evidence for mass e ffect and/or midline shift. There is no evidence for abnormal parenchymal enhancement. The skull base and intracranial structures demonstrate to be within normal limits. Lung apex: Were not imaged. IMPRESSION: No evidence for significant stenosis and/or occlusion involving the intracranial vessels of the Circl e of Garcia. 40-50% caliber narrowing of the right internal carotid artery at the carotid bulb. Status post left carotid endarterectomy with no evidence for stenosis. No evidence for significant stenosis and/or occlusion involving the vertebrobasilar system. Electronically signed by: Richard Escamilla MD 02/01/2025 03:03 AM CDT RP Due to temporary technical issues with the PACS/[employer] reporting system, reports are being alphonso d by the in-house radiologist without review as a courtesy to ensure prompt reporting the interpreting radiologist is fully responsible for the content of the report. Transcribed Date/Time: 02/01/2025 4:00 AM
[2025-02-01 06:56] VITALS: BP 163/99; TEMP 98.6; O2SAT 95
== END 2025-02-01 04:53 | disposition home or self-care (01) ==
LOC: ER 20:39
DX: M50.10 Cervical disc disorder with radiculopathy, unspecified cervical region (principal); M54.9 Dorsalgia, unspecified; E87.6 Hypokalemia; F17.210 Nicotine dependence, cigarettes, uncomplicated
CPT/HCPCS: 93005; 85025; 80048; 36415; 83735; 84484; 70450; 72125; 70496; 70498; 71045; 99285; Q9967; J3480; J3475; J3360; J7030